=== PATIENT | female | born 1925 | race Caucasian/White ===

== ENCOUNTER 2016-07-21 05:27 | Inpatient (IN) | payer MEDICARE, BC ==
--- NOTE | 2016-07-18 18:10 | PREOPHP ---
DATE OF ADMISSION: 07/21/2016 The patient to have surgery with Dr. Yonis Zimmerman 07/21/2016. CONSULTATION REQUESTED BY: Dr. Yonis Zimmerman for medical evaluation and clearance of an 89-yea r-old woman admitted for correction of a fractured right hip. Thank you, Dr. Zimmerman, for participating and allowing us to participate in the care of our patie nt. HISTORY OF PRESENT ILLNESS: Joann Morris, an 89-year-old woman, had a fall approximately 3 to 4 wee ks ago and eventually was brought to the emergency room at [facility] and evaluation at the em ergency room revealed a fractured right hip and patient is currently being admitted for correction o f the above. In terms of her past surgical history, she has had an aortic valve replaced, had thyro id surgery done in the past for removal of a suspicious nodule, had aortic valve replacement as well as D and C. Other than that, she really has not had any significant hospitalizations other than e one with her aortic valve. This would be her first hospitalization in terms of second surgery, re quirement other than the aortic valve. She is being treated medically for hypertension and hyperlipidemia, as well as osteoporosis. She garcia s a cognitive disorder, fractured bones, fractured elbow and currently her right hip. MEDICATIONS: Include: 1. Lipitor 10 mg a day. 2. Metoprolol 25 mg a day. 3. Boniva 150 mg once monthly. 4. Baby aspirin. ALLERGIES: TO HER KNOWLEDGE, SHE HAS ENVIRONMENTAL ALLERGIES. SHE IS NOT ALLERGIC TO ANY MEDICATIO NS, AT LEAST FAR THE PATIENT OR HER FAMILY IS AWARE. SOCIAL HISTORY: The patient is single, has 4 children, 8 grandchildren and 5 great grandchildren. She does not smoke or drink alcoholic beverages, occasional coffee. She does not have difficulty sl eeping at night, but lately has been having difficulty secondary to pain. FAMILY HISTORY: Father at age 71 of coronary artery disease. Mother 51, had breast cancer. O ne brother at age 30. There is family history of heart, cancer and hypertension. REVIEW OF SYSTEMS: HEENT: Periodic headaches. CARDIORESPIRATORY: Denies any chest pain or shortness of breath. GASTROINTESTINAL: No melena or hematemesis. GENITOURINARY: No urgency, frequency. MUSCULOSKELETAL: Positive for right hip pain. NEUROPSYCHIATRIC: Positive for cognitive disorder. GENERAL HEALTH: As above. PHYSICAL EXAMINATION: VITAL SIGNS: The patient's blood pressure was 126/80, pulse was 67 and regular, respirations were 1 8, temperature 98.3. Last weight obtained was 89 pounds. GENERAL: The patient was noted to be a well-developed, well-nourished female, alert and cooperative , in no apparent acute distress, oriented to time, place, and person. HEENT: Head: Atraumatic. Eyes: Pupils were equal, reactive to light and accommodation. Fundi we re benign. Ears: Tympanic membranes were unremarkable. Nose: Negative. Mouth: Unremarkable. F air oral hygiene was present. NECK: Supple without any rigidity. Trachea was midline. Thyroid was unremarkable. Neck veins wer e flat. Carotid pulses were equal and scar was noted from prior thyroid surgery. BACK: Unremarkable. CHEST: Symmetrical. BREASTS AND AXILLARY: Did not reveal any masses. LUNGS: Clear to percussion and auscultation. HEART: PMI is fifth intercostal space at the midclavicular line. Regular sinus rhythm was noted. No significant murmurs, rubs, or gallops being elicited. Scar from prior sternotomy was noted as we ll. ABDOMEN: Soft, good bowel sounds were noted. No significant organomegaly, masses, or tenderness. GENITALIA: Normal female external genitalia. PELVIC/RECTAL: Not done due to patient's discomfort. EXTREMITIES: Did not reveal any clubbing, edema or cyanosis. There was some extreme pain on motion of her right lower extremity. Peripheral pulses were physiologic. SKIN: Moist and warm without any eruptions. No gross lymphadenopathy was noted. NEUROLOGIC: Grossly intact. IMPRESSION: 1. Fractured right hip. 2. Osteoporosis by history. 3. Hypertension. 4. Status post aortic valve replacement. 5. Cognitive disorder, moderate to severe. 6. Degenerative joint disease. DISCUSSION: Review of laboratory and other data revealed the following: The patient's chemistries revealed normal electrolytes. Random glucose of 166, BUN 26, creatinine 0.7, albumin was slightly l ow alkaline phosphatase was minimally elevated. The rest of liver function tests were normal. The patient's CBC revealed a normal white count and mild anemia. PT, PTT were normal. The patient had a urinalysis done at [place] emergency room and this was not repeated. The patient's EKG revealed n onspecific ST-T wave changes, no hyperacute changes, and a single view chest x-ray revealed scoliosi s, status post craniotomy, no acute infiltrate being noted and no acute cardiopulmonary changes bein g noted. DISCUSSION: Dr. Zimmerman, I see no contraindication in this patient undergoing current proposed s urgery under desired form of anesthesia. I feel that if she does not have surgery the patient will be bedbound for her remaining years with chronic discomfort. I feel at this point, albeit her age a nd other issues, she is still is a suitable candidate. Thank you again, Dr. Zimmerman, for participating and allowing us to participate in the care of our patient. Dictated By: BRUNO BENAVIDES MD SS/NTS Conf#: [id number] DID#: [id number]
[2016-07-21] VITALS (106 sets, daily range): BP systolic 58–150; BP diastolic 19–79; PULSE 48–130; RESP 13–42; Ht 152.4 cm; Wt 40.8 kg
[~2016-07-21] VITALS: Ht 152.4 cm; Wt 40.8 kg
[~2016-07-21 05:27] MED LIST: ASPI-650 PO; ATOR20TA17 PO; CO Q-10; IBAN150T4 PO; LISI10TA2 PO; METO-103 PO; MULT1TAB6 PO; VITAMIN D3
[2016-07-21] MEDS ORDERED: DEXAMETHASONE 4 MG/ML 1 ML INJ IV ONE (06:00)
[2016-07-21] MEDS ORDERED: SOD CHLORIDE 0.9% IVPB ONE (06:00)
[2016-07-21] MEDS ORDERED: ONDANSETRON 4 MG INJ IV ONE (06:00)
[2016-07-21] MEDS ORDERED: LANSOPRAZOLE 30 MG CAP PO ONE (06:00)
[2016-07-21] MEDS ORDERED: ACETAMINOPHEN 1000MG/100ML IV 100 ML IVPB ONE (06:00)
[2016-07-21] MEDS ORDERED: VANCOMYCIN 1 GM (PMX) 250 ML IVPB ONE (06:00)
[2016-07-21] MEDS ORDERED: CELECOXIB 200 MG CAP PO ONE (06:00)
[2016-07-21] MEDS ORDERED: TRANEXAMIC ACID IVPB ONE (06:00)
[2016-07-21] MEDS ORDERED: LACTATED RINGER'S 1,000 ML IV* SCH (06:00)
[2016-07-21] MEDS ORDERED: SOD CHLORIDE 0.9% IRR SCH ×2 (06:00)
[2016-07-21] MEDS ORDERED: TRANEXAMIC ACID IRR SCH ×2 (06:00)
[2016-07-21] MEDS ORDERED: oxyCODONE (CR) 10 MG TAB [oxyCONTIN] PO ONE (06:00)
[2016-07-21] MEDS ORDERED: PROPOFOL 20 ML ONE (06:13)
[2016-07-21] MEDS ORDERED: NEOSTIGMINE 3 MG/3 ML SYRINGE ONE (06:13)
[2016-07-21] MEDS ORDERED: LIDOCAINE 2% (SDV) 5 ML INJ ONE (06:13)
[2016-07-21] MEDS ORDERED: GLYCOPYRROLATE 0.4 MG INJ ONE (06:13)
[2016-07-21] MEDS ORDERED: ROCURONIUM 50 MG INJ ONE (06:13)
[2016-07-21] MEDS ORDERED: FENTAnyl 50 MCG/ML VIAL ONE ×2 (06:14→16:52)
[2016-07-21] MEDS ORDERED: LIDOCAINE 2%/EPI 30 ML INJ ONE (06:26)
[2016-07-21] MEDS ORDERED: ATROPINE 1 MG/10 ML SYRINGE IV PRN (06:30)
[2016-07-21] MEDS ORDERED: hydrALAzine 20 MG INJ IV PRN (06:30)
[2016-07-21] MEDS ORDERED: HYDROmorphONE (0.2 MG/ML) 10ML SYG IV PRN ×3 (06:30)
[2016-07-21] MEDS ORDERED: EPHEDrine SULFATE 50 MG/5 ML SYG IV PRN ×2 (06:30→23:00)
[2016-07-21] MEDS ORDERED: FENTAnyl 50 MCG/ML VIAL IV PRN ×2 (06:30)
[2016-07-21] MEDS ORDERED: ONDANSETRON 4 MG INJ IV PRN (06:30)
[2016-07-21] MEDS ORDERED: MEPERIDINE 25 MG INJ IV PRN (06:30)
[2016-07-21] MEDS ORDERED: DIPHENHYDRAMINE 50 MG INJ IV PRN (06:30)
[2016-07-21] MEDS ORDERED: LABETALOL HCL 20MG INJ IV PRN (06:30)
[2016-07-21] MEDS ORDERED: morphine (1 MG/ML) 10ML SYRINGE IV PRN ×3 (06:30)
[2016-07-21] MEDS ORDERED: OXYCODONE/ACETAMINOPHEN (5/325) TAB PO PRN ×2 (06:30)
[2016-07-21] MEDS ORDERED: BACITRACIN 50000 UNITS INJ ONE (06:36)
[2016-07-21] MEDS ORDERED: ROPIVACAINE 0.5 % 30 ML VIAL ONE (06:47)
[2016-07-21] MEDS ORDERED: VANCOMYCIN 1 GM INJ ONE (06:48)
[2016-07-21] MEDS ORDERED: POLYMYXIN B 500000 UNIT INJ ONE (06:48)
[2016-07-21] MEDS ORDERED: TOBRAMYCIN 1.2 GM POWDER ONE (06:48)
[2016-07-21] MEDS ORDERED: ROPIVACAINE 0.2% 100ML BAG ONE (06:48)
[2016-07-21] MEDS ORDERED: DOCU-144 PO (06:50)
[2016-07-21] MEDS ORDERED: SENN-53 PO (06:50)
[2016-07-21] MEDS ORDERED: TRAZ50TA18 PO (06:50)
[2016-07-21] MEDS ORDERED: ONDANSETRON 4 MG INJ ONE ×2 (07:00→07:53)
[2016-07-21] MEDS ORDERED: HIP PAIN COCKTAIL VANCO INJ SCH ×7 (07:00)
[2016-07-21] MEDS ORDERED: DEXAMETHASONE 4 MG/ML 1 ML INJ ONE (07:53)
[2016-07-21] MEDS ORDERED: MINERAL OIL LIGHT 10 ML VIAL ONE (08:39)
[2016-07-21] MEDS ORDERED: oxyCODONE 5 MG TAB PO PRN (10:00)
[2016-07-21] MEDS ORDERED: BISACODYL 10 MG SUPP PR PRN (10:00)
[2016-07-21] MEDS ORDERED: BETHANECHOL 25 MG TAB PO PRN (10:00)
[2016-07-21] MEDS ORDERED: NALOXONE (0.4 MG/ML) INJ IV PRN (10:00)
[2016-07-21] MEDS ORDERED: DOCUSATE SODIUM 100 MG CAP PO ONE (10:00)
[2016-07-21] MEDS ORDERED: HYDROmorphONE 0.2 MG/ML PCA IV PRN (10:00)
[2016-07-21] MEDS ORDERED: MAGNESIUM HYDROXIDE 30ML CUP PO PRN (10:00)
[2016-07-21] MEDS ORDERED: NA PHOSPHATE/BIPHOS 133 ML ENEMA PR PRN (10:00)
[2016-07-21] MEDS ORDERED: MEPERIDINE 10 MG/ML 30 ML PCA IV PRN (10:00)
[2016-07-21] MEDS ORDERED: SENNA/DOCUSATE NA (8.6MG/50MG) TAB PO PRN (10:00)
[2016-07-21] MEDS ORDERED: DIPHENHYDRAMINE 50 MG INJ IM PRN (10:00)
[2016-07-21] MEDS ORDERED: ASPIRIN (EC) 325 MG TAB PO ONE ×2 (10:00→10:37)
[2016-07-21] MEDS ORDERED: ONDANSETRON 4 MG INJ IV SCH (10:00)
[2016-07-21] MEDS ORDERED: CEFAZOLIN 1 GM/50 ML (PMX) 50 ML IVPB ONE (10:36)
[2016-07-21] MEDS: CEFAZOLIN 1 GM/50 ML (PMX) 50 ML IVPB SCH ×2 (11:09→18:13)
--- NOTE | 2016-07-21 11:29 | RADRPT ---
PROCEDURE: XR Right Hip CLINICAL INDICATION: Pain TECHNIQUE: A single portable AP view was submitted. COMPARISON: 07/14/2016 FINDINGS: Osseous structures: Since the previous study, the fracture proximal right femoral neck was replaced with a whole right hip hemiprosthesis which appears well seated. Corticated osseous fragments are s een medial and superior to the lesser trochanter as well as superior to the greater trochanter. Joint spaces: The hip joint spaces well maintained. Soft tissues: Postop subcutaneous air is evident and 2 drains have been placed. Surgical bernice ar e seen laterally. A Brunner catheter projects to the bladder. IMPRESSION: 1. Interval placement of a well seated right hip hemiprosthesis. 2. Osseous fragments are seen about the lesser and greater trochanter. 3. Postoperative subcutaneous air is evident along with 2 drains and superficial bernice have been placed laterally. 4. A Brunner catheter is seen to be in place. Physician Sera Date Time Electronically viewed and signed by Physician Sera on 07/21/2016 11:29 /
--- NOTE | 2016-07-21 11:56 | OPR ---
DATE OF OPERATION: 07/21/2016 SURGEON: Yonis Zimmerman MD ENERGY ADMINISTRATOR: ANESTHESIOLOGIST: Evan Ruiz MD PREOPERATIVE DIAGNOSES: 1. Displaced fracture of the right femoral neck. 2. Severe osteoporosis. POSTOPERATIVE DIAGNOSES: 1. Displaced fracture of the right femoral neck. 2. Severe osteoporosis. OPERATION PERFORMED: Bipolar hemiarthroplasty of the right hip. FINDINGS AT SURGERY: The patient was found to have exceedingly fragile bone. The femoral head was in multiple pieces. Because of the extreme fragility of her bone, I opted to use a cemented femoral component to give a guaranteed anchorage for the component as a prophylactic measure against fractu ring of the proximal femur when she gets up and walking. DESCRIPTION OF PROCEDURE: Under general anesthetic, the patient was placed on her left side with an axillary pad under the left chest. The left peroneal nerve was protectively padded. The patient w as secured to the operating room table. The right leg, thigh and lower abdomen were prepared and dr aped in the usual sterile fashion. An incision was made over the lateral aspect of the right thigh. The incision was deepened through the deep fascia to expose the lateral aspect of the greater troc hanter. The incision was about 4 inches long. The femur was internally rotated to expose the fract ured femoral head. After suitable retraction, the femoral head was removed in multiple pieces. The soft tissues in the acetabulum were removed and the trial femoral heads were inserted into the acet abulum to determine the size. A 47 mm femoral head seemed to fit most perfectly. The proximal femur was now prepared by using flexible reamers to remove the medullary fat and cancel lous bone. The proximal femur is now broached with the appropriate broaches until we reached size 2 . A cement restrictor plug was installed in the proximal femur. The interior of the femur was thor oughly cleaned with pulsatile lavage and was then thoroughly dried by packing. The femoral componen t was now installed with methylmethacrylate cement allowing approximately 10 degrees of anteversion to the femoral component. The hip was reduced and it was found that by using the +5 mm femoral head and neck assembly the hip had a full stable functional range of motion and the Myron test seemed to indicate that the leg lengt hs and muscle tension were appropriate. The hip was dislocated. The wound was frequently irrigated throughout the procedure with normal bushra ine containing antibiotics with pulsatile lavage. Soft tissues around the hip were injected with a mixture of Naropin, Toradol, morphine and clonidine. The permanent femoral head and neck assembly was now installed. The hip was reduced. The short ext ernal rotators and the capsule of the hip were reattached to the posterior lip of the greater trocha nter by means of 2 sutures of #5 Ticron. The superior capsular incision was closed using 2 interrup aline sutures of FiberWire. The rest of the deep tissues were closed with interrupted Vicryl. The skin was closed with bernice. The usual sterile dressings were applied. Patient was rolled onto her back and an abduction rose marie w was placed between her legs. The patient returned to the recovery room in stable condition. Ther e were no problems or complications as far as is known. IMPLANT COMPONENT INFORMATION: Femoral component Garden femoral stem from [employer] size 2 standard, femoral head 47 mm, femoral neck +5 mm. Implant teasel setter: The [employer] of [place], [place]. Dictated By: YONIS MARTINEZ/SHARON Conf#: [id number] DID#: [id number]
--- NOTE | 2016-07-21 14:42 | CONS ---
DATE OF ADMISSION: 07/21/2016 DATE OF CONSULTATION: 07/21/2016 POSTOPERATIVE CONSULTATION FOLLOWUP The patient had surgery for fractured hip 07/21/[address] Yonis Zimmerman. SUBJECTIVE: The patient had surgery. The patient was seen in the recovery room, arousable, but sti ll under the effects of her anesthetic. OBJECTIVE: VITAL SIGNS: Revealed the following, blood pressure was 99/54, pulse was 58, respirations were 18, O2 sat was 100%. The patient earlier had been afebrile. HEENT: Unremarkable other than the patient is a mouth breather. LUNGS: Clear. HEART: Reveals a regular rhythm. Rest of the exam unremarkable. The patient is arousable, does open her eyes, turned towards me. IMPRESSION: 1. Status post repair and hip replacement on the right side. 2. Osteoporosis by history. 3. Hypertension. 4. Post aortic valve replacement. 5. Moderate to severe cognitive disorder. DISCUSSION: Plan is to renew patient's medications and obviously monitor her medical status. The p atient will be transferred to the ICU when a room is available due to her age and frail condition. Condition postoperatively, however, is stable. Thank you again, Dr. Zimmerman, for participating and allowing us to participate in the care of our patient. Dictated By: BRUNO MCGRATH/SHARON Conf#: [id number] DID#: [id number]
[2016-07-21] MEDS: traZODone 50 MG TAB PO SCH (19:04)
[2016-07-21] MEDS ORDERED: traZODone 50 MG TAB PO SCH (21:00)
[2016-07-22] VITALS (32 sets, daily range): BP systolic 83–143; BP diastolic 37–123; PULSE 73–136; RESP 13–33
[2016-07-22] MEDS: DEXTROSE 5%-LR 1,000 ML IV SCH ×2 (00:53→13:21)
[2016-07-22] MEDS ORDERED: CEFAZOLIN 1 GM/50 ML (PMX) 50 ML IVPB ONE (02:40)
[2016-07-22 05:20] LABS: BASOPHILS % 0.3 % (0.0-2.0); HEMATOCRIT 27.5 % (37.0-47.0); LYMPHOCYTES # 1.1 10^3/ul (0.8-2.9); LYMPHOCYTES % 12.1 % (15.0-51.0); MEAN CORPUSCULAR HEMOGLOBIN 31.4 pg (29.0-33.0); MEAN CORPUSCULAR HGB CONC 32.8 g/dl (32.0-37.0); MEAN CORPUSCULAR VOLUME 95.7 fl (82.0-101.0); MEAN PLATELET VOLUME 8.7 fl (7.4-10.4); MONOCYTE # 0.6 10^3/ul (0.3-0.9); MONOCYTES % 7.1 % (0.0-11.0); NEUTROPHIL # 7.1 10^3/ul (1.6-7.5); NEUTROPHILS % 80.5 % (39.0-77.0); PLATELET COUNT 225 10^3/UL (140-440); RED BLOOD COUNT 2.87 10^6/ul (4.20-5.40); RED CELL DISTRIBUTION WIDTH 16.1 % (11.5-14.5); UNCORRECTED WBC 8.9 10^3/ul (4.8-10.8); WHITE BLOOD COUNT 8.9 10^3/ul (4.8-10.8)
[2016-07-22 05:23] LABS: POTASSIUM 4.9 mmol/L (3.5-5.1)
[2016-07-22 05:25] LABS: CREATININE 0.57 mg/dl (0.44-1.00)
[2016-07-22 05:26] LABS: CALCIUM 8.8 mg/dl (8.4-10.2)
[2016-07-22 05:29] LABS: CONDITION 1; LH ANALYZER COMMENTS 1
[2016-07-22] MEDS ORDERED: SOD CHLORIDE 0.9% 250 ML IV ONE (05:30)
[2016-07-22] MEDS ORDERED: KETOROLAC 30 MG INJ INJ PRN (06:00)
[2016-07-22] MEDS ORDERED: BUPIVACAINE 0.25%/EPI (SDV) 30 ML INJ INJ PRN (06:00)
[2016-07-22] MEDS ORDERED: METOPROLOL (XL) 25 MG TAB PO SCH (09:00)
[2016-07-22] MEDS: METOPROLOL (XL) 25 MG TAB PO SCH ×2 (09:00→21:59)
[2016-07-22] MEDS: ATORVASTATIN 20 MG TAB PO SCH (10:23)
[2016-07-22] MEDS: DEXAMETHASONE 4 MG/ML 1 ML INJ IV SCH (10:23)
[2016-07-22] MEDS: ASPIRIN (EC) 325 MG TAB PO SCH ×2 (10:24→21:59)
--- NOTE | 2016-07-22 10:30 | PN ---
DATE: 07/22/2016 SUBJECTIVE: Patient alert, arousable, talking, although sometimes not making too much sense, but an swering questions in terms of comfort, pain; probably not oriented to time or place, possibly person . OBJECTIVE VITAL SIGNS: Temperature 98.3, pulse 97 going up to 120, respiratory rate 20, blood pressure 109/60 ; O2 sat on O2, although not consistently on, 97%. HEENT: Unremarkable. LUNGS: Relatively clear. HEART EXAM: Regular. Rest of the exam is unremarkable. IMPRESSION: 1. Status post fractured right hip and hip replacement. 2. Hypertension. 3. Status post aortic valve replacement. 4. Cognitive disorder. DISCUSSION: Review of her laboratory and other data reveals the following: Patient's electrolytes including BUN, creatinine and glucose were normal. Patient's hemoglobin . PHYSICAL EXAMINATION VITAL SIGNS: Reveal a blood pressure of 115/43, pulse of 125, respirations 21, O2 sat 95% on 2 lite rs, and temperature 97.8. HEENT: Unremarkable. LUNGS: Clear. HEART: Regular rhythm, albeit tachycardia. ABDOMEN EXAM: Unremarkable. IMPRESSION: 1. Status post fractured right hip and hip replacement. 2. History of hypertension. 3. Currently tachycardic without her medications. REVIEW OF LABORATORY AND OTHER DATA: Reveals the following: The patient's white count is normal. Her hemoglobin is 9, hematocrit 27.5. Electrolytes reveal normal electrolytes, BUN and creatinine, as well as glucose. PLAN: Probably to increase her beta paul to b.i.d. and possible cardiology consultation in view of problem with managing tachyarrhythmias, patient's relative hypotension and tachycardia condition. However, is relatively stable at this point in time. Thank you again, Dr. Wilson, for participating and allowing us to participate in the care of our patient. Dictated By: BRUNO BENAVIDES MD SS/NTS Conf#: [id number] DID#: [id number] CC: PETER WILSON MD;*End*
[2016-07-22] MEDS: DOCUSATE SODIUM 100 MG CAP PO SCH ×2 (10:56→21:49)
[2016-07-22] MEDS: MULTIVITAMINS/MINERALS TAB PO SCH (11:01)
[2016-07-22] MEDS: CELECOXIB 200 MG CAP PO SCH ×2 (13:39→21:59)
[2016-07-22] MEDS: FERROUS FUMARATE (SR) TAB PO SCH ×2 (13:39→21:59)
[2016-07-22] MEDS: traZODone 50 MG TAB PO SCH (19:37)
[2016-07-22] MEDS: oxyCODONE 5 MG TAB PO PRN (22:01)
[2016-07-23] VITALS (13 sets, daily range): BP systolic 90–139; BP diastolic 58–99; PULSE 116–121; RESP 18–34
[2016-07-23 06:12] LABS: EOSINOPHILS # 0.1 10^3/ul (0.0-0.5); EOSINOPHILS % 1.6 % (0.0-7.0); HEMATOCRIT 25.3 % (37.0-47.0); HEMOGLOBIN 8.6 g/dl (12.0-16.0); LYMPHOCYTES # 1.1 10^3/ul (0.8-2.9); LYMPHOCYTES % 24.8 % (15.0-51.0); MEAN CORPUSCULAR HEMOGLOBIN 32.3 pg (29.0-33.0); MEAN PLATELET VOLUME 8.1 fl (7.4-10.4); MONOCYTE # 0.6 10^3/ul (0.3-0.9); MONOCYTES % 12.6 % (0.0-11.0); NEUTROPHIL # 2.7 10^3/ul (1.6-7.5); PLATELET COUNT 171 10^3/UL (140-440); RED BLOOD COUNT 2.66 10^6/ul (4.20-5.40); UNCORRECTED WBC 4.5 10^3/ul (4.8-10.8); WHITE BLOOD COUNT 4.5 10^3/ul (4.8-10.8)
[2016-07-23 06:18] LABS: CONDITION 1; LH ANALYZER COMMENTS 1
[2016-07-23 06:25] LABS: POTASSIUM 4.7 mmol/L (3.5-5.1)
[2016-07-23 06:27] LABS: CREATININE 0.68 mg/dl (0.44-1.00)
[2016-07-23 06:28] LABS: CALCIUM 8.8 mg/dl (8.4-10.2)
[2016-07-23] MEDS: METOPROLOL (XL) 25 MG TAB PO SCH ×2 (07:48→21:47)
[2016-07-23] MEDS: PANTOPRAZOLE (EC) 40 MG TAB PO SCH ×2 (07:49→08:30)
[2016-07-23] MEDS: DEXAMETHASONE 4 MG/ML 1 ML INJ IV SCH (08:00)
[2016-07-23] MEDS: FERROUS FUMARATE (SR) TAB PO SCH ×2 (08:13→21:46)
[2016-07-23] MEDS: CELECOXIB 200 MG CAP PO SCH ×2 (08:14→21:46)
[2016-07-23] MEDS: ASPIRIN (EC) 325 MG TAB PO SCH ×2 (08:14→21:46)
[2016-07-23] MEDS: DOCUSATE SODIUM 100 MG CAP PO SCH ×2 (08:14→21:47)
[2016-07-23] MEDS: ATORVASTATIN 20 MG TAB PO SCH (08:14)
[2016-07-23] MEDS: DEXTROSE 5%-LR 1,000 ML IV SCH (08:30)
[2016-07-23] MEDS: oxyCODONE 5 MG TAB PO PRN ×3 (08:59→22:50)
--- NOTE | 2016-07-23 09:10 | PN ---
DATE: 07/23/2016 INTENSIVE CARE UNIT PROGRESS NOTE TIME: Approximately 7:30 a.m. SUBJECTIVE: The patient calm at this particular point in time. Daughter is in the room. Apparentl y earlier the patient had removed most of her dressings and other items in terms of her IVs and band ages. At the time of my visit she was relatively calm. PHYSICAL EXAMINATION: VITAL SIGNS: Revealed the following: Pulse was about 120 on the monitor. Blood pressure 108/78, r espiratory rate 20, increasing as agitation increases and O2 sat was 94% on room air. HEENT: Unremarkable. LUNGS: Clear. HEART: Revealed a tachycardia. The rest of the exam was unremarkable other than her mental state which at this point is not agitate d, but calm. IMPRESSION: 1. Status post total hip replacement for post fracture of the right hip. 2. Hypertension. 3. Tachycardia. 4. Possible dehydration. 5. Cognitive disorder. DISCUSSION: Review of laboratory and other data revealed the following: The patient's white count is normal. Her hemoglobin is 8.6, hematocrit 25.3. Her chemistries reveal normal electrolytes, glu cose, BUN, and creatinine. BUN minimally elevated. Plan is to see whether or not a bed can be avai lable for her. Her beta paul should be given, albeit at lower doses, to control her pulse rate a nd hopefully fluid hydration and oral intake of food will resolve some of her other issues. CONDITION: Still quite guarded in view of her multiple problems at her age. Dictated By: BRUNO MCGRATH/SHARON Conf#: [id number] DID#: [id number]
[2016-07-23] MEDS: MULTIVITAMINS/MINERALS TAB PO SCH (09:41)
[2016-07-23] MEDS ORDERED: METOPROLOL (XL) 25 MG TAB PO ONE (11:00)
[2016-07-23] MEDS: DEXAMETHASONE 4 MG TAB PO SCH (11:57)
[2016-07-23] MEDS: QUETIAPINE 25 MG TAB PO SCH (19:18)
[2016-07-23] MEDS: traZODone 50 MG TAB PO SCH (21:47)
[2016-07-24 01:26] VITALS: BP 125/83; RESP 20
[2016-07-24 01:29] VITALS: BP 139/68
[2016-07-24] MEDS: PANTOPRAZOLE (EC) 40 MG TAB PO SCH (06:01)
[2016-07-24] MEDS: oxyCODONE 5 MG TAB PO PRN ×2 (06:01→12:20)
[2016-07-24 06:07] LABS: ALBUMIN 2.7 g/dl (3.3-4.9)
[2016-07-24 06:08] LABS: POTASSIUM 4.6 mmol/L (3.5-5.1)
[2016-07-24 06:10] LABS: ALBUMIN/GLOBULIN RATIO 0.96; BILIRUBIN,INDIRECT 0.2 mg/dl (0-1.1); BILIRUBIN,TOTAL 0.2 mg/dl (0.2-1.3); CREATININE 0.62 mg/dl (0.44-1.00); TOTAL PROTEIN 5.5 g/dl (6.1-8.1)
[2016-07-24 06:11] LABS: BASOPHILS % 0.4 % (0.0-2.0); CALCIUM 8.9 mg/dl (8.4-10.2); EOSINOPHILS % 0.4 % (0.0-7.0); HEMOGLOBIN 10.4 g/dl (12.0-16.0); LYMPHOCYTES # 1.9 10^3/ul (0.8-2.9); LYMPHOCYTES % 25.5 % (15.0-51.0); MEAN CORPUSCULAR HEMOGLOBIN 32.3 pg (29.0-33.0); MEAN CORPUSCULAR HGB CONC 33.7 g/dl (32.0-37.0); MEAN CORPUSCULAR VOLUME 95.9 fl (82.0-101.0); MEAN PLATELET VOLUME 8.9 fl (7.4-10.4); MONOCYTE # 0.9 10^3/ul (0.3-0.9); MONOCYTES % 11.9 % (0.0-11.0); NEUTROPHIL # 4.6 10^3/ul (1.6-7.5); NEUTROPHILS % 61.8 % (39.0-77.0); PLATELET COUNT 226 10^3/UL (140-440); RED BLOOD COUNT 3.23 10^6/ul (4.20-5.40); RED CELL DISTRIBUTION WIDTH 16.1 % (11.5-14.5); UNCORRECTED WBC 7.4 10^3/ul (4.8-10.8); WHITE BLOOD COUNT 7.4 10^3/ul (4.8-10.8)
[2016-07-24 06:30] LABS: CONDITION 1; LH ANALYZER COMMENTS 1
[2016-07-24 07:23] VITALS: BP 104/71; RESP 18
[2016-07-24] MEDS: FERROUS FUMARATE (SR) TAB PO SCH ×2 (09:25→22:27)
[2016-07-24] MEDS: ASPIRIN (EC) 325 MG TAB PO SCH ×2 (09:25→22:27)
[2016-07-24] MEDS: CELECOXIB 200 MG CAP PO SCH ×2 (09:25→22:27)
[2016-07-24] MEDS: DOCUSATE SODIUM 100 MG CAP PO SCH ×2 (09:26→22:27)
[2016-07-24] MEDS: ATORVASTATIN 20 MG TAB PO SCH (09:26)
[2016-07-24] MEDS: METOPROLOL (XL) 25 MG TAB PO SCH ×2 (09:29→22:28)
[2016-07-24] MEDS: DEXAMETHASONE 4 MG TAB PO SCH (09:51)
[2016-07-24] MEDS: MULTIVITAMINS/MINERALS TAB PO SCH (09:52)
--- NOTE | 2016-07-24 11:17 | PN ---
Date/Time of Note Date/Time of Note DATE: 07/24/16 TIME: 11:15 Assessment/Plan Lines/Catheters IV Catheter Type (from Nrsg): Peripheral IV Brunner in Place (from Nrsg): Yes Assessment/Plan Assessment/Plan POD # 3. Stable. -Ok to transfer to ARU -OOB with PT -Hip precautions -Pain cocktail administered -ASA plus bilateral SCDs Subjective 24 Hr Interval Summary Resting comfortably. Exam/Review of Systems Vital Signs Vitals Vital Signs Date Time Temp Pulse Resp B/P Pulse Ox O2 Delivery O2 Flow Rate FiO2 07/24/16 07:23 97.8 68 18 104/71 98 07/23/16 12:00 Room Air 07/22/16 06:00 2.0 Intake and Output 07/23/16 07/23/16 07/24/16 15:00 23:00 07:00 Intake Total 360 ml 500 ml 300 ml Output Total 185 ml 460 ml 550 ml Balance 175 ml 40 ml -250 ml Exam Free Text/Dictation Dressing dry Incision clean, dry, and intact without redness or drainage Thigh soft 5/5 Quadriceps, Tibialis Anterior, EHL, Gastroc Soleus, Peroneals Normal sensation Palpable DP/PT, CR < 2 Sec No distal edema Results Result Diagram: 07/24/16 0415 07/24/16 0415 FABY LIZARRAGA MD Jul 24, 2016 11:16
--- NOTE | 2016-07-24 11:50 | PN ---
Date/Time of Note Date/Time of Note DATE: 07/24/16 TIME: 11:44 Assessment/Plan VTE Prophylaxis VTE Prophylaxis Intervention: SCD's Lines/Catheters IV Catheter Type (from Nrsg): Peripheral IV Urinary Cath still in place: Yes Reason Cath still needed: skin wounds contaminated by urine Assessment/Plan Problems: (1) History of right hip hemiarthroplasty Status: Chronic Comment: Doing fair from post-operative standpoint. No obvious complications. POD#3 (2) Osteoporotic fracture of right hip Status: Acute Comment: H/o multiple osteoporotic fractures. Pt. has been on boniva. Obviously not effective. Consider starting forteo. Qualifiers: Encounter type: subsequent encounter (3) Dementia Status: Chronic Comment: Complicated by delirium here in hospital. Added quetiapine 50 mg qhs. Will continue and monitor mental status. (4) Essential (primary) hypertension Status: Chronic Comment: Controlled. Cont. metoprolol. (5) Hyperlipidemia Status: Chronic Comment: Cont. atorvastatin. Qualifiers: Hyperlipidemia type: unspecified Qualified Code: E78.5 - Hyperlipidemia, unspecified hyperlipidemia type Subjective 24 Hr Interval Summary Constitutional: improved, no complaints Respiratory: no complaints Cardiovascular: no complaints Gastrointestinal: no complaints Genitourinary: no complaints Musculoskeletal: no complaints Neurologic: confusion (family reports pt. confused and agitated, not sleeping well. Quetiapine was helpful but has not solved the problem) Psychological: anxiety, confusion Exam/Review of Systems Vital Signs Vitals VS - Last 72 Hours, by Label Date Time Temp Pulse Resp B/P Pulse Ox O2 Delivery O2 Flow Rate FiO2 07/24/16 07:23 97.8 68 18 104/71 98 07/24/16 01:29 69 139/68 07/24/16 01:26 97.5 70 20 125/83 94 07/23/16 21:20 78 07/23/16 19:18 97.9 124 20 102/64 92 07/23/16 12:00 118 07/23/16 12:00 117 18 109/71 96 Room Air 07/23/16 11:00 119 18 139/99 97 Room Air 07/23/16 10:00 116 20 119/85 96 Room Air 07/23/16 09:00 118 19 108/72 99 Room Air 07/23/16 08:00 98.4 119 19 91/64 97 Room Air 07/23/16 08:00 119 07/23/16 07:30 100 07/23/16 06:01 116 19 106/77 91 Room Air 07/23/16 05:00 117 19 99/72 96 Room Air 07/23/16 04:00 116 07/23/16 04:00 98.0 116 18 109/58 95 Room Air 07/23/16 03:00 120 18 90/68 95 Room Air 07/23/16 02:00 121 34 108/78 94 Room Air 07/23/16 01:00 120 26 109/69 93 Room Air 07/23/16 00:00 120 07/23/16 00:00 97.9 120 32 111/68 93 Room Air 07/22/16 23:03 81 07/22/16 23:00 121 25 120/77 95 Room Air 07/22/16 22:00 122 21 116/73 95 Room Air 07/22/16 21:25 122 07/22/16 21:00 21 124/83 96 Room Air 07/22/16 20:00 98.0 20 105/59 95 Room Air 07/22/16 19:42 20 114/61 95 Room Air 07/22/16 19:00 143/123 07/22/16 18:00 131/94 86 07/22/16 17:00 131/62 07/22/16 16:00 97.7 79 19 133/87 100 07/22/16 16:00 81 07/22/16 15:00 83 24 119/75 93 07/22/16 14:00 75 19 114/59 99 07/22/16 13:00 73 16 103/71 95 07/22/16 12:00 97.4 74 17 96/56 97 07/22/16 12:00 78 07/22/16 11:00 81 13 113/66 95 07/22/16 10:00 84 33 97/53 94 07/22/16 09:00 130 26 83/47 98 07/22/16 08:20 97.9 131 23 95/56 97 07/22/16 08:00 84 07/22/16 06:46 136 07/22/16 06:00 129 23 104/59 98 Nasal Cannula 2.0 07/22/16 05:00 97.8 125 21 115/43 95 Nasal Cannula 2.0 07/22/16 04:51 129 1/5/17 04:00 92 07/22/16 04:00 77 21 113/60 100 Nasal Cannula 2.0 07/22/16 03:00 73 13 89/37 95 Nasal Cannula 2.0 07/22/16 02:00 75 15 97/45 97 Nasal Cannula 2.0 07/22/16 01:58 73 14 97/45 100 Nasal Cannula 2.0 07/22/16 01:37 75 07/22/16 01:15 73 07/22/16 01:00 79 18 101/45 100 Nasal Cannula 2.0 07/22/16 01:00 99 2.0 07/22/16 00:51 98 18 95/46 99 Nasal Cannula 2.0 07/21/16 23:39 88 30 125/48 98 Nasal Cannula 2.0 07/21/16 23:34 66 14 64/35 99 Nasal Cannula 2.0 07/21/16 23:28 64 14 78/37 99 Nasal Cannula 2.0 07/21/16 23:06 66 16 85/41 100 Nasal Cannula 2.0 07/21/16 22:57 64 16 71/36 100 Nasal Cannula 2.0 07/21/16 22:53 70 14 83/36 94 Nasal Cannula 2.0 07/21/16 22:48 64 24 80/34 99 Nasal Cannula 2.0 07/21/16 22:32 70 15 72/37 100 Nasal Cannula 2.0 07/21/16 22:27 56 15 73/40 100 Nasal Cannula 2.0 07/21/16 22:17 62 18 76/37 93 Nasal Cannula 2.0 07/21/16 22:12 64 24 85/34 97 Nasal Cannula 2.0 07/21/16 22:04 60 17 73/34 94 Nasal Cannula 2.0 07/21/16 21:57 60 15 74/19 93 Nasal Cannula 2.0 07/21/16 21:52 97.8 64 17 78/40 93 Nasal Cannula 2.0 07/21/16 21:26 66 19 91/51 95 Nasal Cannula 2.0 07/21/16 21:21 66 17 99/53 95 Nasal Cannula 2.0 07/21/16 21:15 60 17 86/51 99 Nasal Cannula 2.0 07/21/16 21:10 60 24 80/43 92 Nasal Cannula 2.0 07/21/16 21:05 62 28 81/46 93 Nasal Cannula 2.0 07/21/16 21:00 66 28 79/54 96 Nasal Cannula 2.0 07/21/16 20:55 58 15 69/32 97 Nasal Cannula 2.0 07/21/16 20:50 64 19 76/32 94 Nasal Cannula 2.0 07/21/16 20:45 62 19 75/37 99 Nasal Cannula 2.0 07/21/16 20:40 56 16 76/36 100 Nasal Cannula 2.0 07/21/16 20:35 58 14 85/40 98 Nasal Cannula 2.0 07/21/16 20:30 64 20 85/40 99 Nasal Cannula 2.0 07/21/16 20:25 56 16 85/47 99 Nasal Cannula 2.0 07/21/16 20:20 56 16 82/40 98 Nasal Cannula 2.0 07/21/16 20:15 58 29 73/39 99 Nasal Cannula 2.0 07/21/16 20:10 54 15 82/35 100 Nasal Cannula 2.0 07/21/16 20:05 54 15 69/34 99 Nasal Cannula 2.0 07/21/16 19:55 58 15 79/38 99 Nasal Cannula 2.0 07/21/16 19:45 64 13 97/47 98 Nasal Cannula 2.0 07/21/16 19:40 64 14 113/54 99 Nasal Cannula 2.0 07/21/16 19:35 64 19 103/59 90 Nasal Cannula 2.0 07/21/16 19:30 62 14 94/52 95 Nasal Cannula 2.0 07/21/16 19:25 62 24 103/59 96 Nasal Cannula 2.0 07/21/16 19:20 64 42 116/59 93 Nasal Cannula 2.0 07/21/16 19:15 68 24 100/64 96 Nasal Cannula 2.0 07/21/16 19:10 70 24 122/68 96 Nasal Cannula 2.0 07/21/16 19:05 72 30 133/66 98 Nasal Cannula 2.0 07/21/16 19:00 72 17 111/75 89 Nasal Cannula 2.0 07/21/16 18:40 52 17 87/46 100 Nasal Cannula 2.0 07/21/16 18:30 64 25 97/50 95 Nasal Cannula 2.0 07/21/16 18:28 56 32 82/47 97 Nasal Cannula 2.0 07/21/16 18:27 56 17 77/43 94 Nasal Cannula 2.0 07/21/16 18:25 58 21 79/44 95 Nasal Cannula 2.0 07/21/16 18:20 58 21 81/43 96 Nasal Cannula 2.0 07/21/16 18:10 58 20 85/47 96 Nasal Cannula 2.0 07/21/16 18:05 62 20 87/45 95 Nasal Cannula 2.0 07/21/16 18:00 60 17 91/46 94 Nasal Cannula 2.0 07/21/16 17:59 60 18 94/48 95 Nasal Cannula 2.0 07/21/16 17:58 60 15 96/46 95 Nasal Cannula 2.0 07/21/16 17:57 62 14 92/47 95 Nasal Cannula 2.0 07/21/16 17:55 62 16 99/54 93 Nasal Cannula 2.0 07/21/16 17:50 60 25 102/56 96 Nasal Cannula 2.0 07/21/16 17:42 122 32 86/53 69 Nasal Cannula 2.0 07/21/16 17:39 124 23 58/44 82 Nasal Cannula 2.0 07/21/16 17:35 66 25 93 07/21/16 17:30 60 17 102/56 96 07/21/16 16:30 92 17 137/72 88 07/21/16 16:27 106 17 135/79 90 07/21/16 15:43 63 14 98/60 100 07/21/16 14:30 50 17 116/58 100 07/21/16 14:14 20 104/57 100 07/21/16 13:30 56 21 109/59 99 07/21/16 12:21 52 16 100 07/21/16 12:16 58 18 99/54 100 07/21/16 12:11 52 18 85/48 100 07/21/16 12:06 52 16 84/47 100 07/21/16 12:01 50 15 81/48 100 07/21/16 12:00 63 17 92/53 100 07/21/16 11:59 63 17 96/46 100 07/21/16 11:56 74 17 92/49 100 07/21/16 11:52 62 18 87/43 100 07/21/16 11:46 50 18 89/49 100 Vital Signs Date Time Temp Pulse Resp B/P Pulse Ox O2 Delivery O2 Flow Rate FiO2 07/24/16 07:23 97.8 68 18 104/71 98 07/23/16 12:00 Room Air 07/22/16 06:00 2.0 Intake and Output 07/23/16 07/23/16 07/24/16 15:00 23:00 07:00 Intake Total 360 ml 500 ml 300 ml Output Total 185 ml 460 ml 550 ml Balance 175 ml 40 ml -250 ml Exam Constitutional: alert, frail, No oriented, No well developed Psych: confusion Respiratory: clear to auscultation, normal air movement Cardiovascular: nl pulses, regular rate and rhythm, No edema, No murmurs/extra sounds, No rub Gastrointestinal: bowel sounds, nl liver, spleen, non-tender, soft, No mass, No rebound or guarding Musculoskeletal: nl extremities to inspection Extremities: normal pulses, No clubbing, No cyanosis, No edema Neurological: CAD DEVELOPER II-XII intact, confused, nl mental status, nl speech, nl strength Results Result Diagram: 07/24/1641407/24/165 Results 24 hrs Laboratory Tests Test 07/24/16 04:15 Alanine Aminotransferase (ALT/SGPT) 27 Albumin 2.7 L Albumin/Globulin Ratio 0.96 Alkaline Phosphatase 114 Anion Gap 14 Aspartate Amino Transf (AST/SGOT) 32 Basophils # 0.0 Basophils % 0.4 Blood Morphology Comment Blood Urea Nitrogen 22 H Calcium Level 8.9 Carbon Dioxide Level 28 Chloride Level 103 Creatinine 0.62 Direct Bilirubin 0.00 Eosinophils # 0.0 Eosinophils % 0.4 Globulin 2.80 Glucose Level 91 Hematocrit 31.0 #L Hemoglobin 10.4 #L Indirect Bilirubin 0.2 Lymphocytes # 1.9 Lymphocytes % 25.5 Mean Corpuscular Hemoglobin 32.3 Mean Corpuscular Hemoglobin Concent 33.7 Mean Corpuscular Volume 95.9 Mean Platelet Volume 8.9 Monocytes # 0.9 Monocytes % 11.9 H Neutrophils # 4.6 Neutrophils % 61.8 Nucleated Red Blood Cells # 0.0 Nucleated Red Blood Cells % 0.0 Platelet Count 226 # Potassium Level 4.6 Red Blood Count 3.23 #L Red Cell Distribution Width 16.1 H Sodium Level 140 Total Bilirubin 0.2 Total Protein 5.5 L White Blood Count 7.4 # Medications Medications Current Medications Oxycodone HCl (Roxicodone) 10 mg Q3H PRN PO PAIN LEVEL 4-7 Last administered on 07/24/16 06:01; Admin Dose 10 MG; Start 07/21/16 at 10:00 Zolpidem Tartrate (Ambien) 5 mg HS PRN PO INSOMNIA; Start 07/21/16 at 10:00 Aspirin (Ecotrin) 325 mg BID PO Last administered on 07/24/16 09:25; Admin Dose 325 MG; Start 07/22/16 at 09:00 Celecoxib (Celebrex) 200 mg BID PO Last administered on 07/24/16 09:25; Admin Dose 200 MG; Start 07/22/16 at 09:00 Pantoprazole (Protonix Tab) 40 mg DAILY@06 PO Last administered on 07/24/16 06: 01; Admin Dose 40 MG; Start 07/22/16 at 06:00 Docusate Sodium/ Ferrous Fumarate (Tyree-Sequels) 1 tab BID PO Last administered on 07/24/16 09:25; Admin Dose 1 TAB; Start 07/22/16 at 09:00 Docusate Sodium (Colace) 200 mg BID PO Last administered on 07/24/16 09:26; Admin Dose 200 MG; Start 07/22/16 at 09:00; Stop 07/24/16 at 21:01 Simethicone (Mylicon) 80 mg TID PRN PO DISTENSION/GAS/BLOATING; Start 07/21/16 at 10:00 Senna/Docusate Sodium (Senokot-S) 2 tab BID PRN PO CONSTIPATION; Start 07/21/16 at 10:00 Magnesium Hydroxide (Milk Of Mag) 30 ml HS PRN PO CONSTIPATION; Start 07/21/16 at 10:00 Bisacodyl (Dulcolax Supp) 10 mg DAILY PRN [place] CONSTIPATION; Start 07/21/16 at 10: 00 Sodium Biphosphate/ Sodium Phosphate (Fleet Enema) 133 ml DAILY PRN [place] CONSTIPATION; Start 07/21/16 at 10:00 Diphenhydramine HCl (Benadryl) 25 mg Q4H PRN IM ITCHING OR RASH Last administered on 07/21/16 14:23; Admin Dose 25 MG; Start 07/21/16 at 10:00 Ketorolac Tromethamine (Toradol) 30 mg DAILY@06 PRN INJ ADMINSTER BY SURGEON ONLY; Start 07/22/16 at 06:00; Stop 07/26/16 at 05:59 Bupivacaine HCl/ Epinephrine Bitart (Marcaine 0.25%/ Epi (Sdv) 30 ml) 20 ml DAILY@06 PRN INJ ADMINSTER BY SURGEON ONLY; Start 07/22/16 at 06:00; Stop at 05:59 Naloxone HCl (Narcan) 0.2 mg Q2M PRN IV DECREASED REPIRATORY RATE; Start at 10:00 Atorvastatin Calcium (Lipitor) 20 mg DAILY PO Last administered on 07/24/16 09: 26; Admin Dose 20 MG; Start 07/22/16 at 09:00 Multivitamins/ Minerals (Theragran-M) 1 tab DAILY PO Last administered on 09:52; Admin Dose 1 TAB; Start 07/22/16 at 09:00 Trazodone HCl (Desyrel) 50 mg QHS PO Last administered on 07/23/16 21:47; Admin Dose 50 MG; Start 07/21/16 at 17:20 Metoprolol Succinate (Toprol Xl) 25 mg BID PO Last administered on 07/24/16 09: 29; Admin Dose 25 MG; Start 07/22/16 at 09:00 Dexamethasone (Decadron) 4 mg DAILY PO Last administered on 07/24/16 09:51; Admin Dose 4 MG; Start 07/23/16 at 12:00; Stop 08/02/16 at 11:59 Quetiapine Fumarate (Seroquel) 50 mg HS PO Last administered on 07/23/16 19:18 ; Admin Dose 50 MG; Start 07/23/16 at 17:00 MICHAELLE ARIAS MD Jul 24, 2016 11:50
[2016-07-24 19:21] VITALS: BP 129/82; RESP 16
[2016-07-24] MEDS: traZODone 50 MG TAB PO SCH (22:27)
[2016-07-24] MEDS: QUETIAPINE 25 MG TAB PO SCH (22:28)
[2016-07-25] MEDS: oxyCODONE 5 MG TAB PO PRN ×2 (00:35→15:28)
[2016-07-25] MEDS: PANTOPRAZOLE (EC) 40 MG TAB PO SCH (05:44)
[2016-07-25 05:53] LABS: BASOPHILS % 0.7 % (0.0-2.0); EOSINOPHILS # 0.2 10^3/ul (0.0-0.5); EOSINOPHILS % 4.6 % (0.0-7.0); HEMATOCRIT 25.5 % (37.0-47.0); HEMOGLOBIN 8.4 g/dl (12.0-16.0); LYMPHOCYTES # 1.4 10^3/ul (0.8-2.9); LYMPHOCYTES % 27.1 % (15.0-51.0); MEAN CORPUSCULAR HEMOGLOBIN 31.4 pg (29.0-33.0); MEAN CORPUSCULAR HGB CONC 33.2 g/dl (32.0-37.0); MEAN CORPUSCULAR VOLUME 94.7 fl (82.0-101.0); MEAN PLATELET VOLUME 8.7 fl (7.4-10.4); MONOCYTE # 0.5 10^3/ul (0.3-0.9); MONOCYTES % 10.4 % (0.0-11.0); NEUTROPHIL # 2.9 10^3/ul (1.6-7.5); NEUTROPHILS % 57.2 % (39.0-77.0); PLATELET COUNT 193 10^3/UL (140-440); RED BLOOD COUNT 2.69 10^6/ul (4.20-5.40); RED CELL DISTRIBUTION WIDTH 15.2 % (11.5-14.5); UNCORRECTED WBC 5.1 10^3/ul (4.8-10.8); WHITE BLOOD COUNT 5.1 10^3/ul (4.8-10.8)
[2016-07-25 06:10] LABS: CONDITION 1; LH ANALYZER COMMENTS 1
[2016-07-25 07:58] VITALS: BP 153/75; PULSE 72; RESP 20
[2016-07-25] MEDS: DEXAMETHASONE 4 MG TAB PO SCH ×2 (09:00→09:15)
[2016-07-25] MEDS: METOPROLOL (XL) 25 MG TAB PO SCH ×3 (09:00→21:47)
[2016-07-25] MEDS: CELECOXIB 200 MG CAP PO SCH ×3 (09:00→21:46)
[2016-07-25] MEDS: ATORVASTATIN 20 MG TAB PO SCH ×2 (09:00→09:15)
[2016-07-25] MEDS: FERROUS FUMARATE (SR) TAB PO SCH ×3 (09:00→21:00)
[2016-07-25] MEDS: MULTIVITAMINS/MINERALS TAB PO SCH ×2 (09:00→09:15)
[2016-07-25] MEDS: ASPIRIN (EC) 325 MG TAB PO SCH ×3 (09:15→21:46)
--- NOTE | 2016-07-25 10:23 | PN ---
Date/Time of Note Date/Time of Note DATE: 07/25/16 TIME: 10:16 Assessment/Plan VTE Prophylaxis VTE Prophylaxis Intervention: SCD's Lines/Catheters IV Catheter Type (from Nrs): Peripheral IV Urinary Cath still in place: No Assessment/Plan Problems: (1) Tachycardia Status: Acute Comment: Regular rhythm tachycardia but pt. at rest. Will check 12-lead EKG (2) Delirium Status: Acute Comment: Worse today despite quetiapine last night. Will order Haldol 1 mg IV q6 prn (3) Dementia Status: Chronic Comment: Contributing to delirium (4) H/O osteoporotic pathological fracture Status: Chronic Comment: Consider forteo. (5) Constipation Status: Chronic Comment: At home family giving 3 senna, tid around the clock. Will continue this. (6) History of right hip hemiarthroplasty Status: Chronic Comment: Clinically worse POD#4. Pt. being monitored but despite best efforts , delirium continues. Will continue current care and hope it resolves. Subjective 24 Hr Interval Summary Subjective hx not possible: pt non-verbal (mostly sleeping, when examined pt. wakes and incoherently indicates she does not want to be disturbed) Exam/Review of Systems Vital Signs Vitals VS - Last 72 Hours, by Label Date Time Temp Pulse Resp B/P Pulse Ox O2 Delivery O2 Flow Rate FiO2 07/25/16 07:58 97.8 72 20 153/75 92 Room Air 07/24/16 19:21 99.0 137 16 129/82 98 07/24/16 07:23 97.8 68 18 104/71 98 07/24/16 01:29 69 139/68 07/24/16 01:26 97.5 70 20 125/83 94 07/23/16 21:20 78 07/23/16 19:18 97.9 124 20 102/64 92 07/23/16 12:00 118 07/23/16 12:00 117 18 109/71 96 Room Air 07/23/16 11:00 119 18 139/99 97 Room Air 07/23/16 10:00 116 20 119/85 96 Room Air 07/23/16 09:00 118 19 108/72 99 Room Air 07/23/16 08:00 98.4 119 19 91/64 97 Room Air 07/23/16 08:00 119 07/23/16 07:30 100 07/23/16 06:01 116 19 106/77 91 Room Air 07/23/16 05:00 117 19 99/72 96 Room Air 07/23/16 04:00 116 07/23/16 04:00 98.0 116 18 109/58 95 Room Air 07/23/16 03:00 120 18 90/68 95 Room Air 07/23/16 02:00 121 34 108/78 94 Room Air 07/23/16 01:00 120 26 109/69 93 Room Air 07/23/16 00:00 120 07/23/16 00:00 97.9 120 32 111/68 93 Room Air 07/22/16 23:03 81 07/22/16 23:00 121 25 120/77 95 Room Air 07/22/16 22:00 122 21 116/73 95 Room Air 07/22/16 21:25 122 07/22/16 21:00 21 124/83 96 Room Air 07/22/16 20:00 98.0 20 105/59 95 Room Air 07/22/16 19:42 20 114/61 95 Room Air 07/22/16 19:00 143/123 07/22/16 18:00 131/94 86 07/22/16 17:00 131/62 07/22/16 16:00 97.7 79 19 133/87 100 07/22/16 16:00 81 07/22/16 15:00 83 24 119/75 93 07/22/16 14:00 75 19 114/59 99 07/22/16 13:00 73 16 103/71 95 07/22/16 12:00 97.4 74 17 96/56 97 07/22/16 12:00 78 07/22/16 11:00 81 13 113/66 95 Vital Signs Date Time Temp Pulse Resp B/P Pulse Ox O2 Delivery O2 Flow Rate FiO2 07/25/16 07:58 97.8 72 20 153/75 92 Room Air 07/22/16 06:00 2.0 Intake and Output 07/24/16 07/24/16 07/25/16 15:00 23:00 07:00 Intake Total 550 ml 400 ml Output Total 350 ml 900 ml Balance 200 ml -500 ml Exam Constitutional: frail, No alert, No oriented Psych: confusion Respiratory: clear to auscultation, normal air movement Cardiovascular: edema (1+ edema BLE), No regular rate and rhythm (tachycardic) Gastrointestinal: bowel sounds, nl liver, spleen, non-tender, soft, No mass, No rebound or guarding Musculoskeletal: nl extremities to inspection Extremities: edema (1+), normal pulses, No clubbing, No cyanosis Neurological: confused, lethargic, No MARKING CLERK II-XII intact, No nl mental status, No nl speech, No nl strength Results Result Diagram: 07/25/16 0430 07/24/16 0415 Results 24 hrs Laboratory Tests Test 07/25/16 04:30 Basophils # 0.0 Basophils % 0.7 Blood Morphology Comment Eosinophils # 0.2 Eosinophils % 4.6 Hematocrit 25.5 L Hemoglobin 8.4 L Lymphocytes # 1.4 Lymphocytes % 27.1 Mean Corpuscular Hemoglobin 31.4 Mean Corpuscular Hemoglobin Concent 33.2 Mean Corpuscular Volume 94.7 Mean Platelet Volume 8.7 Monocytes # 0.5 Monocytes % 10.4 Neutrophils # 2.9 Neutrophils % 57.2 Nucleated Red Blood Cells # 0.0 Nucleated Red Blood Cells % 0.0 Platelet Count 193 Red Blood Count 2.69 L Red Cell Distribution Width 15.2 H White Blood Count 5.1 # Medications Medications Current Medications Oxycodone HCl (Roxicodone) 10 mg Q3H PRN PO PAIN LEVEL 4-7 Last administered on 07/25/16 00:35; Admin Dose 10 MG; Start 07/21/16 at 10:00 Zolpidem Tartrate (Ambien) 5 mg HS PRN PO INSOMNIA; Start 07/21/16 at 10:00 Aspirin (Ecotrin) 325 mg BID PO Last administered on 07/25/16 09:18; Admin Dose 325 MG; Start 07/22/16 at 09:00 Celecoxib (Celebrex) 200 mg BID PO Last administered on 07/24/16 22:27; Admin Dose 200 MG; Start 07/22/16 at 09:00 Pantoprazole (Protonix Tab) 40 mg DAILY@06 PO Last administered on 07/25/16 05: 44; Admin Dose 40 MG; Start 07/22/16 at 06:00 Docusate Sodium/ Ferrous Fumarate (Tyree-Sequels) 1 tab BID PO Last administered on 07/24/16 22:27; Admin Dose 1 TAB; Start 07/22/16 at 09:00 Simethicone (Mylicon) 80 mg TID PRN PO DISTENSION/GAS/BLOATING; Start 07/21/16 at 10:00 Senna/Docusate Sodium (Senokot-S) 2 tab BID PRN PO CONSTIPATION Last administered on 07/24/16 22:29; Admin Dose 2 TAB; Start 07/21/16 at 10:00 Magnesium Hydroxide (Milk Of Mag) 30 ml HS PRN PO CONSTIPATION Last administered on 07/24/16 22:29; Admin Dose 30 ML; Start 07/21/16 at 10:00 Bisacodyl (Dulcolax Supp) 10 mg DAILY PRN [place] CONSTIPATION; Start 07/21/16 at 10: 00 Sodium Biphosphate/ Sodium Phosphate (Fleet Enema) 133 ml DAILY PRN [place] CONSTIPATION; Start 07/21/16 at 10:00 Diphenhydramine HCl (Benadryl) 25 mg Q4H PRN IM ITCHING OR RASH Last administered on 07/21/16 14:23; Admin Dose 25 MG; Start 07/21/16 at 10:00 Ketorolac Tromethamine (Toradol) 30 mg DAILY@06 PRN INJ ADMINSTER BY SURGEON ONLY; Start 07/22/16 at 06:00; Stop 07/26/16 at 05:59 Bupivacaine HCl/ Epinephrine Bitart (Marcaine 0.25%/ Epi (Sdv) 30 ml) 20 ml DAILY@06 PRN INJ ADMINSTER BY SURGEON ONLY; Start 07/22/16 at 06:00; Stop at 05:59 Naloxone HCl (Narcan) 0.2 mg Q2M PRN IV DECREASED REPIRATORY RATE; Start at 10:00 Atorvastatin Calcium (Lipitor) 20 mg DAILY PO Last administered on 07/24/16 09: 26; Admin Dose 20 MG; Start 07/22/16 at 09:00 Multivitamins/ Minerals (Theragran-M) 1 tab DAILY PO Last administered on 09:52; Admin Dose 1 TAB; Start 07/22/16 at 09:00 Trazodone HCl (Desyrel) 50 mg QHS PO Last administered on 07/24/16 22:27; Admin Dose 50 MG; Start 07/21/16 at 17:20 Metoprolol Succinate (Toprol Xl) 25 mg BID PO Last administered on 07/24/16 22: 28; Admin Dose 25 MG; Start 07/22/16 at 09:00 Dexamethasone (Decadron) 4 mg DAILY PO Last administered on 07/24/16 09:51; Admin Dose 4 MG; Start 07/23/16 at 12:00; Stop 08/02/16 at 11:59 Quetiapine Fumarate (Seroquel) 50 mg HS PO Last administered on 07/24/16 22:28 ; Admin Dose 50 MG; Start 07/23/16 at 17:00 MICHAELLE ARIAS MD Jul 25, 2016 10:23
[2016-07-25] MEDS ORDERED: HALOPERIDOL 5 MG INJ IV PRN (10:30)
--- NOTE | 2016-07-25 11:47 | PN ---
Date/Time of Note Date/Time of Note DATE: 07/25/16 TIME: 11:45 Assessment/Plan Lines/Catheters IV Catheter Type (from Nrsg): Peripheral IV Brunner in Place (from Nrsg): Yes Assessment/Plan Assessment/Plan POD # 4. Stable. -OOB with PT -Hip precautions -Pain meds -ASA/SCDs -Abduction pillow -D/C planning (? to SNF) Subjective 24 Hr Interval Summary Not accepted to ARU. Lying in bed comfortably. Keeps kicking off abduction pillow. Exam/Review of Systems Vital Signs Vitals Vital Signs Date Time Temp Pulse Resp B/P Pulse Ox O2 Delivery O2 Flow Rate FiO2 07/25/16 07:58 97.8 72 20 153/75 92 Room Air 07/22/16 06:00 2.0 Intake and Output 07/24/16 07/24/16 07/25/16 15:00 23:00 07:00 Intake Total 550 ml 400 ml Output Total 350 ml 900 ml Balance 200 ml -500 ml Exam Free Text/Dictation Leg lengths equal Dressing dry Thigh soft 5/5 Quadriceps, Tibialis Anterior, EHL, Gastroc Soleus, Peroneals Normal sensation Palpable DP/PT, CR < 2 Sec No distal edema Results Result Diagram: 07/25/16 0430 07/24/16 0415 FABY LIZARRAGA MD Jul 25, 2016 11:46
[2016-07-25] MEDS: SENNA/DOCUSATE NA (8.6MG/50MG) TAB PO SCH ×2 (13:00→21:47)
[2016-07-25 17:52] VITALS: BP 101/65; PULSE 141; RESP 20
[2016-07-25 20:00] VITALS: BP 136/91; PULSE 136; RESP 21
[2016-07-25] MEDS: traZODone 50 MG TAB PO SCH (21:46)
[2016-07-25] MEDS: QUETIAPINE 25 MG TAB PO SCH (21:46)
[2016-07-26] VITALS (13 sets, daily range): BP systolic 105–166; BP diastolic 57–90; PULSE 62–134; RESP 18–21
[2016-07-26] MEDS: FERROUS FUMARATE (SR) TAB PO SCH ×3 (00:26→22:03)
[2016-07-26] MEDS: PANTOPRAZOLE (EC) 40 MG TAB PO SCH (05:02)
[2016-07-26 06:24] LABS: BASOPHIL # 0.1 10^3/ul (0.0-0.1); BASOPHILS % 0.9 % (0.0-2.0); EOSINOPHILS % 16.2 % (0.0-7.0); HEMATOCRIT 34.8 % (37.0-47.0); HEMOGLOBIN 11.8 g/dl (12.0-16.0); LYMPHOCYTES # 1.3 10^3/ul (0.8-2.9); LYMPHOCYTES % 21.1 % (15.0-51.0); MEAN CORPUSCULAR HEMOGLOBIN 31.6 pg (29.0-33.0); MEAN CORPUSCULAR HGB CONC 33.7 g/dl (32.0-37.0); MEAN CORPUSCULAR VOLUME 93.8 fl (82.0-101.0); MEAN PLATELET VOLUME 8.3 fl (7.4-10.4); MONOCYTE # 0.6 10^3/ul (0.3-0.9); MONOCYTES % 9.2 % (0.0-11.0); NEUTROPHIL # 3.2 10^3/ul (1.6-7.5); NEUTROPHILS % 52.6 % (39.0-77.0); PLATELET COUNT 200 10^3/UL (140-440); RED BLOOD COUNT 3.71 10^6/ul (4.20-5.40); RED CELL DISTRIBUTION WIDTH 16.4 % (11.5-14.5); UNCORRECTED WBC 6.1 10^3/ul (4.8-10.8); WHITE BLOOD COUNT 6.1 10^3/ul (4.8-10.8)
[2016-07-26 06:27] LABS: CONDITION 1; LH ANALYZER COMMENTS 1
[2016-07-26] MEDS: MULTIVITAMINS/MINERALS TAB PO SCH (08:42)
[2016-07-26] MEDS: ASPIRIN (EC) 325 MG TAB PO SCH ×2 (08:42→22:03)
[2016-07-26] MEDS: SENNA/DOCUSATE NA (8.6MG/50MG) TAB PO SCH ×3 (08:42→22:02)
[2016-07-26] MEDS: METOPROLOL (XL) 25 MG TAB PO SCH (08:42)
[2016-07-26] MEDS: CELECOXIB 200 MG CAP PO SCH ×2 (08:42→22:03)
[2016-07-26] MEDS: DEXAMETHASONE 4 MG TAB PO SCH (08:42)
[2016-07-26] MEDS: ATORVASTATIN 20 MG TAB PO SCH (08:42)
[2016-07-26] MEDS ORDERED: ADENOSINE 3 MG/ML SYRINGE IV STA (10:56)
[2016-07-26] MEDS ORDERED: ADENOSINE 6 MG INJ IV PRN (11:30)
[2016-07-26] MEDS: DILTIAZEM 30 MG TAB PO SCH ×2 (11:55→18:50)
--- NOTE | 2016-07-26 12:03 | CONS ---
Date/Time of Note Date/Time of Note DATE: 07/26/16 TIME: 11:56 Assessment/Plan Assessment/Plan Additional Assessment/Plan Supraventricular tachycardia Hip fracture status post repair Aortic stenosis status post aortic valve replacement Hypertension Delirium History of dementia -Patient with SVT noted on telemetry and ECG. Initially adenosine 6 mg was given without a result, then gave 12 mg IV and patient currently in sinus rhythm. Would start Cardizem by mouth. Patient on multiple QT prolonging agents including Seroquel, trazodone, Haldol. Unable to start amiodarone to help maintain in sinus rhythm. I did discuss this with the patient's primary physician Dr. Whiting, patient has been on trazodone for approximately one month, would stop Seroquel and continue Haldol when necessary. If recurrent episodes of arrhythmias, would consider discontinuing Haldol at that time. Would obtain echocardiogram to eval LV function. Would also check chemistry panel and magnesium level and maintain potassium above 4.0 and magnesium above 2.0. Consultation Date/Type/Reason Admit Date/Time Jul 21, 2016 at 05:27 Type of Consultation: cv Reason for Consultation Supraventricular tachycardia Hx of Present Illness This is an 89-year-old female with history of aortic valve replacement, hypertension, progressive dementia who underwent surgery for a hip fracture. Patient was postoperative delirium. Yesterday, patient noted to be tachycardic and SVT. Patient transferred to telemetry. Patient's son-in-law at bedside. He does recall issues of tachycardia in the past and has had her beta paul dose adjusted as well as episodes of bradycardia. Unfortunate, patient unable to give history at the current time. She does answer occasional questions. She denies chest pain, shortness of breath or palpitations. Constitutional: improved, no complaints Respiratory: no complaints Cardiovascular: no complaints Gastrointestinal: no complaints Genitourinary: no complaints Musculoskeletal: no complaints Neurologic: confusion (family reports pt. confused and agitated, not sleeping well. Quetiapine was helpful but has not solved the problem) Psychological: confusion Past Medical History Aortic stenosis status post replacement Hypertension Dementia Past Surgical History Aortic valve replacement Family History Significant Family History: no pertinent family hx Social History Alcohol Use: none Smoking Status: Never smoker Exam/Review of Systems Vital Signs Vitals Vital Signs Date Time Temp Pulse Resp B/P Pulse Ox O2 Delivery O2 Flow Rate FiO2 07/26/16 11:14 98.8 132 18 133/90 94 07/26/16 04:00 Room Air Intake and Output 07/25/16 07/25/16 07/26/16 15:00 23:00 07:00 Intake Total 200 ml 420 ml Output Total 450 ml Balance -250 ml 420 ml Exam Sleeping but arousable, moaning at times Head: normocephalic Neck: supple Respiratory: other (course breath sounds bilaterally, no wheezing) Cardiovascular: other (tachycardic and regular) Gastrointestinal: bowel sounds, non-tender, soft Extremities: edema (trace) Results Result Diagram: 07/26/16 0554 07/24/16 0415 Results 24 hrs Laboratory Tests Test 07/26/16 05:54 Basophils # 0.1 Basophils % 0.9 Blood Morphology Comment Eosinophils # 1.0 H Eosinophils % 16.2 H Hematocrit 34.8 #L Hemoglobin 11.8 #L Lymphocytes # 1.3 Lymphocytes % 21.1 Mean Corpuscular Hemoglobin 31.6 Mean Corpuscular Hemoglobin Concent 33.7 Mean Corpuscular Volume 93.8 Mean Platelet Volume 8.3 Monocytes # 0.6 Monocytes % 9.2 Neutrophils # 3.2 Neutrophils % 52.6 Nucleated Red Blood Cells # 0.0 Nucleated Red Blood Cells % 0.0 Platelet Count 200 Red Blood Count 3.71 #L Red Cell Distribution Width 16.4 H White Blood Count 6.1 Medications Medications Current Medications Oxycodone HCl (Roxicodone) 10 mg Q3H PRN PO PAIN LEVEL 4-7 Last administered on 07/25/16 15:28; Admin Dose 10 MG; Start 07/21/16 at 10:00 Zolpidem Tartrate (Ambien) 5 mg HS PRN PO INSOMNIA; Start 07/21/16 at 10:00 Aspirin (Ecotrin) 325 mg BID PO Last administered on 07/26/16 08:42; Admin Dose 325 MG; Start 07/22/16 at 09:00 Celecoxib (Celebrex) 200 mg BID PO Last administered on 07/26/16 08:42; Admin Dose 200 MG; Start 07/22/16 at 09:00 Pantoprazole (Protonix Tab) 40 mg DAILY@06 PO Last administered on 07/26/16 05: 02; Admin Dose 40 MG; Start 07/22/16 at 06:00 Docusate Sodium/ Ferrous Fumarate (Tyree-Sequels) 1 tab BID PO Last administered on 07/26/16 08:42; Admin Dose 1 TAB; Start 07/22/16 at 09:00 Simethicone (Mylicon) 80 mg TID PRN PO DISTENSION/GAS/BLOATING; Start 07/21/16 at 10:00 Magnesium Hydroxide (Milk Of Mag) 30 ml HS PRN PO CONSTIPATION Last administered on 07/24/16 22:29; Admin Dose 30 ML; Start 07/21/16 at 10:00 Bisacodyl (Dulcolax Supp) 10 mg DAILY PRN [place] CONSTIPATION; Start 07/21/16 at 10: 00 Sodium Biphosphate/ Sodium Phosphate (Fleet Enema) 133 ml DAILY PRN [place] CONSTIPATION; Start 07/21/16 at 10:00 Diphenhydramine HCl (Benadryl) 25 mg Q4H PRN IM ITCHING OR RASH Last administered on 07/21/16 14:23; Admin Dose 25 MG; Start 07/21/16 at 10:00 Naloxone HCl (Narcan) 0.2 mg Q2M PRN IV DECREASED REPIRATORY RATE; Start at 10:00 Atorvastatin Calcium (Lipitor) 20 mg DAILY PO Last administered on 07/26/16 08: 42; Admin Dose 20 MG; Start 07/22/16 at 09:00 Multivitamins/ Minerals (Theragran-M) 1 tab DAILY PO Last administered on 08:42; Admin Dose 1 TAB; Start 07/22/16 at 09:00 Trazodone HCl (Desyrel) 50 mg QHS PO Last administered on 07/25/16 21:46; Admin Dose 50 MG; Start 07/21/16 at 17:20 Dexamethasone (Decadron) 4 mg DAILY PO Last administered on 07/26/16 08:42; Admin Dose 4 MG; Start 07/23/16 at 12:00; Stop 08/02/16 at 11:59 Quetiapine Fumarate (Seroquel) 50 mg HS PO Last administered on 07/25/16 21:46 ; Admin Dose 50 MG; Start 07/23/16 at 17:00 Senna/Docusate Sodium (Senokot-S) 3 tab TID PO Last administered on 07/26/16 08 :42; Admin Dose 3 TAB; Start 07/25/16 at 13:00 Haloperidol (Haldol) 1 mg Q6 PRN IV AGITATION/ANXIETY; Start 07/25/16 at 10:30 Diltiazem HCl (Cardizem) 30 mg Q6 PO ; Start 07/26/16 at 12:00 Adenosine (Adenosine) 12 mg ONCE PRN IV svt Last administered on 07/26/16 11:43 ; Admin Dose 12 MG; Start 07/26/16 at 11:30; Stop 07/26/16 at 23:00 Procedures Procedures ECG done on 07/16 demonstrated sinus rhythm with first-degree AV block, QRS 76 ms ECG done yesterday demonstrates super ventricular tachycardia at 132 bpm, QRS 64 ms Bipin Hayes DO Jul 26, 2016 12:02
[2016-07-26 12:48] LABS: POTASSIUM 4.5 mmol/L (3.5-5.1)
[2016-07-26 12:51] LABS: CREATININE 0.57 mg/dl (0.44-1.00)
[2016-07-26 12:52] LABS: CALCIUM 8.6 mg/dl (8.4-10.2); MAGNESIUM 2.3 mg/dl (1.7-2.5)
--- NOTE | 2016-07-26 14:27 | PN ---
DATE: 07/26/2016 Patient seen approximately 8:00 a.m. Patient resting comfortably in telemetry unit was transferred there because of paroxysmal atrial tac hycardia/atrial arrhythmia which seems to be under control at the time of my visit, albeit the patie nt seemed to be resting and not really answering questions appropriately. PHYSICAL EXAMINATION: VITAL SIGNS: Revealed the following: Her blood pressure was 108/57, pulse was 87, temperature 97.9 , respiratory rate 20, O2 saturation 91% on room air. HEENT: Unremarkable. LUNGS: Sounded clear. HEART: Revealed a regular rhythm. IMPRESSION: 1. Paroxysmal atrial tachycardia, currently apparently sinus rhythm. 2. 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 3. Hypertension. 4. Dementia. 5. Stable health currently. DISCUSSION: Review of laboratory and other data revealed the following: The patient's hemoglobin a nd hematocrit post-transfusion was stable. Her chemistries revealed normal electrolytes, BUN, gluco se, etc. and her liver function tests were also normal the last time they were checked up. PLAN: As per cardiology. We will also try and get social services specialist involved in terms of ultimate pl acement after her arrhythmia stabilizes. Dictated By: BRUNO MCGRATH/SHARON Conf#: [id number] DID#: [id number]
--- NOTE | 2016-07-26 16:05 | RADRPT ---
Echocardiogram Report Patient Name: KARINA WIGGINS Gender: Female Date: 1925 Study Date: 26-Jul-2016 Singing Messenger: Dewayne Bear [facility] Location: 514 Ref. Physician: BIPIN JENNINGS Quality: Good Procedures: Transthoracic echocardiogram with complete 2D, M-Mode, and doppler examination. Indications: SVT. 2D/M Mode Doppler Measurement Value Normal Ranges Measurement Value Normal Ranges LVIDd 2D 4.1 3.5 - 5.6 cm AV Mean Isai 1.5 m/sec LVIDs 2D 1.7 2.1 - 4.1 cm AV Mean PG 10.4 mmHg LVPWd 2D 0.8 0.6 - 1.1 cm AV Peak Isai 2.2 m/sec IVSd 2D 0.8 0.6 - 1.1 cm AV Peak PG 20.0 mmHg AoR Diam 2D 2.2 2.0 - 3.7 cm AV VTI 46.6 cm EDV 2D 73.9 cm3 LVOT Mean Isai 1.1 m/sec ESV 2D 5.1 cm3 LVOT Mean PG 5.7 mmHg LA Dimen 2D 3.5 2.3 - 4.0 cm LVOT Peak Isai 1.6 m/sec LVOT Peak PG 9.9 mmHg LVOT VTI 33.8 cm MV E Peak Isai 0.7 m/sec MV A Peak Isai 0.5 m/sec MV E/A 1.5 MV Decel Time 131 msec MV Decel [place] 6 MV E/A 1.5 TR Peak Isai 2.7 m/sec TR Peak PG 29.7 mmHg RVSP 38.0 mmHg Findings Left Ventricle: Normal left ventricular systolic function. Normal left ventricular cavity size. Normal left ventricular wall thickness. Ejection fraction is visually estimated at 60 %. Abnormal Diastolic Function. Right Ventricle: Not well visualized. Moderate enlargement of right ventricle. Moderate right ventricular hypokinesis. Left Atrium: The left atrium is normal in size. Right Atrium: There is moderate enlargement of right atrium. Mitral Valve: Mitral valve leaflets appear mildly thickened. Mild mitral annular calcification. Mild mitral valve regurgitation. Aortic Valve: Aortic Valve Bio Prosthesis with normal function. Aortic valve Max velocity 2.24 m/sec. Max PG 20.00 mmHg. Mean PG 10.00 mmHg. No aortic regurgitation. Tricuspid Valve: Normal appearance of the tricuspid valve. Estimated peak PA systolic pressure 38 mmHg. There is moderate tricuspid regurgitation. Pulmonic Valve: Pulmonic valve not well visualized. There is mild pulmonic regurgitation. Pericardium: Normal pericardium with no significant pericardial effusion. Left pleural effusion seen. Aorta: Normal aortic root. IVC: Normal size and no respiratory collapse consistent with elevated right atrial pressure. Conclusions Normal left ventricular systolic function. Normal left ventricular cavity size. Normal left ventricular wall thickness. Ejection fraction is visually estimated at 60 %. Abnormal Diastolic Function. Moderate enlargement of right ventricle. Moderate right ventricular hypokinesis. The left atrium is normal in size. There is moderate enlargement of right atrium. Aortic Valve Bio Prosthesis with normal function. Mild mitral valve regurgitation. Estimated peak PA systolic pressure 38 mmHg. There is moderate tricuspid regurgitation. Normal pericardium with no significant pericardial effusion. Left pleural effusion seen. Electronically Signed By: Bipin Jennings 26-Jul-2016 16:04:51 -0800 Patient Name: KARINA WIGGINS Study Date: 26-Jul-2016 [id number]
[2016-07-26] MEDS: oxyCODONE 5 MG TAB PO PRN (22:03)
[2016-07-26] MEDS: traZODone 50 MG TAB PO SCH (22:03)
[2016-07-27] VITALS (12 sets, daily range): BP systolic 102–153; BP diastolic 59–94; PULSE 62–134; RESP 18–22
[2016-07-27] MEDS: DILTIAZEM 30 MG TAB PO SCH ×3 (03:11→13:15)
[2016-07-27] MEDS: oxyCODONE 5 MG TAB PO PRN ×2 (03:12→21:02)
[2016-07-27] MEDS: PANTOPRAZOLE (EC) 40 MG TAB PO SCH (06:26)
[2016-07-27 06:57] LABS: BASOPHILS % 0.6 % (0.0-2.0); EOSINOPHILS # 0.3 10^3/ul (0.0-0.5); EOSINOPHILS % 3.4 % (0.0-7.0); HEMOGLOBIN 11.4 g/dl (12.0-16.0); LYMPHOCYTES # 1.2 10^3/ul (0.8-2.9); MEAN CORPUSCULAR HEMOGLOBIN 31.6 pg (29.0-33.0); MEAN CORPUSCULAR HGB CONC 33.4 g/dl (32.0-37.0); MEAN CORPUSCULAR VOLUME 94.7 fl (82.0-101.0); MEAN PLATELET VOLUME 8.4 fl (7.4-10.4); MONOCYTE # 0.8 10^3/ul (0.3-0.9); MONOCYTES % 10.7 % (0.0-11.0); NEUTROPHIL # 5.2 10^3/ul (1.6-7.5); NEUTROPHILS % 69.3 % (39.0-77.0); PLATELET COUNT 262 10^3/UL (140-440); RED BLOOD COUNT 3.59 10^6/ul (4.20-5.40); RED CELL DISTRIBUTION WIDTH 16.7 % (11.5-14.5); UNCORRECTED WBC 7.5 10^3/ul (4.8-10.8); WHITE BLOOD COUNT 7.5 10^3/ul (4.8-10.8)
[2016-07-27 07:01] LABS: CONDITION 1; LH ANALYZER COMMENTS 1
[2016-07-27 07:57] LABS: POTASSIUM 4.7 mmol/L (3.5-5.1)
[2016-07-27 08:00] LABS: CREATININE 0.73 mg/dl (0.44-1.00)
[2016-07-27 08:01] LABS: CALCIUM 8.6 mg/dl (8.4-10.2)
[2016-07-27] MEDS: FERROUS FUMARATE (SR) TAB PO SCH ×2 (09:00→20:59)
[2016-07-27] MEDS: CELECOXIB 200 MG CAP PO SCH ×2 (10:12→20:59)
[2016-07-27] MEDS: ATORVASTATIN 20 MG TAB PO SCH (10:12)
[2016-07-27] MEDS: ASPIRIN (EC) 325 MG TAB PO SCH ×2 (10:13→20:59)
[2016-07-27] MEDS: DEXAMETHASONE 4 MG TAB PO SCH (10:13)
[2016-07-27] MEDS: MULTIVITAMINS/MINERALS TAB PO SCH (10:13)
[2016-07-27] MEDS: SENNA/DOCUSATE NA (8.6MG/50MG) TAB PO SCH ×3 (10:14→21:00)
[2016-07-27] MEDS ORDERED: ADENOSINE 6 MG INJ IV STA ×2 (14:03→14:44)
--- NOTE | 2016-07-27 16:39 | CONS ---
Date/Time of Note Date/Time of Note DATE: 07/27/16 TIME: 16:32 Assessment/Plan Assessment/Plan Additional Assessment/Plan Supraventricular tachycardia Hip fracture status post repair Preserved left ventricular systolic function Aortic stenosis status post aortic valve replacement Hypertension Delirium History of dementia -Patient with recurrent SVT today. Responded to 12 mg IV adenosine and converted to sinus rhythm, and then recurrent SVT. Will stop haldol and trazodone secondary to QT prolongation. Would check TSH, increase dose of Cardizem by mouth and give Cardizem IV push now. If does not convert to sinus rhythm, would plan to start antiarrhythmic tomorrow after some time for antipsychotic medications to "washout" Consultation Date/Type/Reason Admit Date/Time Jul 21, 2016 at 05:27 Initial Consult Date Type of Consultation: cv 24 HR Interval Summary Free Text/Dictation Patient with recurrent SVT this morning, mental status slightly improved but still confused Exam/Review of Systems Vital Signs Vitals Vital Signs Date Time Temp Pulse Resp B/P Pulse Ox O2 Delivery O2 Flow Rate FiO2 07/27/16 16:12 134 07/27/16 15:36 98.0 20 117/76 95 07/27/16 08:30 Room Air Intake and Output 07/26/16 07/26/16 07/27/16 15:00 23:00 07:00 Intake Total 400 ml Balance 400 ml Exam Awake, follows commands, confused at times Head: normocephalic Neck: supple Respiratory: other (course breath sounds bilaterally, no wheezing) Cardiovascular: other (tachycardic, S1-S2 heard) Gastrointestinal: bowel sounds, non-tender, soft Extremities: other (no edema) Results Result Diagram: 07/27/16 0601 07/27/16 0544 Results 24 hrs Laboratory Tests Test 07/27/16 05:44 07/27/16 06:01 Anion Gap 9 Blood Urea Nitrogen 32 H Calcium Level 8.6 Carbon Dioxide Level 31 Chloride Level 106 Creatinine 0.73 Glucose Level 96 Potassium Level 4.7 Sodium Level 141 Basophils # 0.0 Basophils % 0.6 Blood Morphology Comment Eosinophils # 0.3 Eosinophils % 3.4 Hematocrit 34.0 L Hemoglobin 11.4 L Lymphocytes # 1.2 Lymphocytes % 16.0 Mean Corpuscular Hemoglobin 31.6 Mean Corpuscular Hemoglobin Concent 33.4 Mean Corpuscular Volume 94.7 Mean Platelet Volume 8.4 Monocytes # 0.8 Monocytes % 10.7 Neutrophils # 5.2 Neutrophils % 69.3 Nucleated Red Blood Cells # 0.0 Nucleated Red Blood Cells % 0.0 Platelet Count 262 # Red Blood Count 3.59 L Red Cell Distribution Width 16.7 H White Blood Count 7.5 # Medications Medications Current Medications Oxycodone HCl (Roxicodone) 10 mg Q3H PRN PO PAIN LEVEL 4-7 Last administered on 07/27/16 03:12; Admin Dose 10 MG; Start 07/21/16 at 10:00 Zolpidem Tartrate (Ambien) 5 mg HS PRN PO INSOMNIA; Start 07/21/16 at 10:00 Aspirin (Ecotrin) 325 mg BID PO Last administered on 07/27/16 10:13; Admin Dose 325 MG; Start 07/22/16 at 09:00 Celecoxib (Celebrex) 200 mg BID PO Last administered on 07/27/16 10:12; Admin Dose 200 MG; Start 07/22/16 at 09:00 Pantoprazole (Protonix Tab) 40 mg DAILY@06 PO Last administered on 07/27/16 06 :26; Admin Dose 40 MG; Start 07/22/16 at 06:00 Docusate Sodium/ Ferrous Fumarate (Tyree-Sequels) 1 tab BID PO Last administered on 07/27/16 09:00; Admin Dose 1 TAB; Start 07/22/16 at 09:00 Simethicone (Mylicon) 80 mg TID PRN PO DISTENSION/GAS/BLOATING; Start 07/21/16 at 10:00 Magnesium Hydroxide (Milk Of Mag) 30 ml HS PRN PO CONSTIPATION Last administered on 07/24/16 22:29; Admin Dose 30 ML; Start 07/21/16 at 10:00 Bisacodyl (Dulcolax Supp) [address] CONSTIPATION; Start 07/21/16 at 10: 00 Sodium Biphosphate/ Sodium Phosphate (Fleet Enema) [address] CONSTIPATION; Start 07/21/16 at 10:00 Diphenhydramine HCl (Benadryl) 25 mg Q4H PRN IM ITCHING OR RASH Last administered on 07/21/16 14:23; Admin Dose 25 MG; Start 07/21/16 at 10:00 Naloxone HCl (Narcan) 0.2 mg Q2M PRN IV DECREASED REPIRATORY RATE; Start at 10:00 Atorvastatin Calcium (Lipitor) 20 mg DAILY PO Last administered on 07/27/16 10 :12; Admin Dose 20 MG; Start 07/22/16 at 09:00 Multivitamins/ Minerals (Theragran-M) 1 tab DAILY PO Last administered on 10:13; Admin Dose 1 TAB; Start 07/22/16 at 09:00 Trazodone HCl (Desyrel) 50 mg QHS PO Last administered on 07/26/16 22:03; Admin Dose 50 MG; Start 07/21/16 at 17:20 Dexamethasone (Decadron) 4 mg DAILY PO Last administered on 07/27/16 10:13; Admin Dose 4 MG; Start 07/23/16 at 12:00; Stop 08/02/16 at 11:59 Senna/Docusate Sodium (Senokot-S) 3 tab TID PO Last administered on 07/27/16 13:15; Admin Dose 3 TAB; Start 07/25/16 at 13:00 Haloperidol (Haldol) 1 mg Q6 PRN IV AGITATION/ANXIETY; Start 07/25/16 at 10:30 Diltiazem HCl (Cardizem) 30 mg Q6 PO Last administered on 07/27/16 13:15; Admin Dose 30 MG; Start 07/26/16 at 12:00 Bipin Hayes DO Jul 27, 2016 16:39
[2016-07-27] MEDS ORDERED: MAGNESIUM SULFATE 1 GM/D5W 100 ML IVPB ONE (17:00)
[2016-07-27] MEDS ORDERED: DILTIAZEM 25 MG INJ IV ONE (17:00)
[2016-07-27] MEDS ORDERED: SOD CHLORIDE 0.9% 250 ML IV ONE (17:00)
[2016-07-27] MEDS: DILTIAZEM 60 MG TAB PO SCH (19:06)
[2016-07-28] VITALS (13 sets, daily range): BP systolic 128–176; BP diastolic 62–87; PULSE 57–118; RESP 18–22
[2016-07-28] MEDS: DILTIAZEM 60 MG TAB PO SCH ×4 (00:39→18:14)
[2016-07-28] MEDS: ZOLPIDEM 5 MG TAB PO PRN (00:39)
[2016-07-28] MEDS: PANTOPRAZOLE (EC) 40 MG TAB PO SCH (05:27)
--- NOTE | 2016-07-28 08:54 | PN ---
DATE: 07/27/2016 TIME: Approximately 7:40 a.m. SUBJECTIVE: The patient is sleeping and hard to arouse or disturb. Someone says she has been sleeping for a while, but does seem to be more peaceful and more comfortable; however, has barely eaten or drank anything. PHYSICAL EXAMINATION: VITAL SIGNS: Revealed the following: Blood pressure 125/84, pulse again 101, temperature 98.2, O2 saturation 95%. HEENT: Negative. LUNGS: Clear. HEART: At the time of my exam was regular. IMPRESSION: 1. Status post total hip replacement. 2. Paroxysmal atrial tachycardia. 3. Hypertension by history. 4. Dementia. 5. Possible dehydration. DISCUSSION: Review of laboratory and other data revealed the following: The patient's CBC revealed a normal hemoglobin and hematocrit and white count. The patient's chemistries revealed normal electrolytes, creatinine, BUN, as well as glucose, and even calcium was normal. PLAN: To try and hydrate the patient a little bit more than what she is currently, albeit she is getting some fluid hydration at this point in time, and also see whether or not some of her sedation can be diminished to have her more alert. The issue with that, however, is that she becomes combative when she is not sedated. CONDITION: Still fairly guarded at this particular point in time. Dictated By: BRUNO MCGRATH/SHARON Conf#: [id number] DID#: [id number] MTDD
[2016-07-28] MEDS: MULTIVITAMINS/MINERALS TAB PO SCH (09:02)
[2016-07-28] MEDS: DEXAMETHASONE 4 MG TAB PO SCH (09:03)
[2016-07-28] MEDS: FERROUS FUMARATE (SR) TAB PO SCH ×2 (09:04→20:35)
[2016-07-28] MEDS: ASPIRIN (EC) 325 MG TAB PO SCH ×2 (09:04→20:35)
[2016-07-28] MEDS: oxyCODONE 5 MG TAB PO PRN (09:04)
[2016-07-28] MEDS: CELECOXIB 200 MG CAP PO SCH ×2 (09:04→20:35)
[2016-07-28] MEDS: SENNA/DOCUSATE NA (8.6MG/50MG) TAB PO SCH ×3 (09:05→20:35)
[2016-07-28] MEDS: ATORVASTATIN 20 MG TAB PO SCH (09:16)
[2016-07-28 09:41] LABS: BASOPHILS % 0.4 % (0.0-2.0); EOSINOPHILS # 0.1 10^3/ul (0.0-0.5); EOSINOPHILS % 1.3 % (0.0-7.0); HEMATOCRIT 37.5 % (37.0-47.0); HEMOGLOBIN 12.5 g/dl (12.0-16.0); LYMPHOCYTES # 1.1 10^3/ul (0.8-2.9); LYMPHOCYTES % 17.3 % (15.0-51.0); MEAN CORPUSCULAR HEMOGLOBIN 31.4 pg (29.0-33.0); MEAN CORPUSCULAR HGB CONC 33.4 g/dl (32.0-37.0); MEAN CORPUSCULAR VOLUME 94.1 fl (82.0-101.0); MONOCYTE # 0.7 10^3/ul (0.3-0.9); MONOCYTES % 10.5 % (0.0-11.0); NEUTROPHIL # 4.5 10^3/ul (1.6-7.5); NEUTROPHILS % 70.5 % (39.0-77.0); PLATELET COUNT 305 10^3/UL (140-440); RED BLOOD COUNT 3.99 10^6/ul (4.20-5.40); RED CELL DISTRIBUTION WIDTH 15.9 % (11.5-14.5); UNCORRECTED WBC 6.4 10^3/ul (4.8-10.8); WHITE BLOOD COUNT 6.4 10^3/ul (4.8-10.8)
[2016-07-28 09:47] LABS: CONDITION 1; LH ANALYZER COMMENTS 1
[2016-07-28 09:48] LABS: POTASSIUM 4.3 mmol/L (3.5-5.1)
[2016-07-28 09:51] LABS: CREATININE 0.54 mg/dl (0.44-1.00)
[2016-07-28 09:52] LABS: CALCIUM 8.7 mg/dl (8.4-10.2)
[2016-07-28 09:53] LABS: MAGNESIUM 2.1 mg/dl (1.7-2.5)
[2016-07-28 10:23] LABS: THYROID STIMULATING HORMONE 1.87 MIU/L (0.465-4.680)
--- NOTE | 2016-07-28 12:41 | PN ---
DATE: 07/28/2016 Patient seen at approximately 8:00 a.m. 07/28/2016 SUBJECTIVE: The patient is quite drowsy this morning; however, does react at least to touch stimuli and not so much to sound stimuli. She has not been eating much and is not at this point cooperatin g with physical therapy when they come around. PHYSICAL EXAMINATION: VITAL SIGNS: Temperature is 97.6, pulse 69, respirations 20, O2 saturation 91%, blood pressure 160/ 78. HEENT: Unremarkable. LUNGS: Clear. HEART: At this time regular rhythm. Rest of the exam is unremarkable. IMPRESSION: 1. Status post total hip replacement and hip fracture, right hip. 2. Paroxysmal atrial tachycardia. 3. Hypertension. 4. Altered mental cognitive disorder. DISCUSSION: Problem discussed with the family, apparently if she is sedated she gets very sleepy. If she is not sedated she becomes combative and it has been hard for physical therapy to work with h er caught in a bad spot. At this point hopefully her cardiac status will be stable and case manageme nt to decide what may be appropriate at this point for this patient. The patient otherwise is stabl e; however, she has not been eating and fear is that she may get dehydrated. Laboratory today are n ot available because patient did not let the fountain attendant draw her blood today. Dictated By: BRUNO BENAVIDES MD SS/NTS Conf#: [id number] DID#: [id number]
--- NOTE | 2016-07-28 18:49 | CONS ---
Date/Time of Note Date/Time of Note DATE: 07/28/16 TIME: 18:47 Assessment/Plan Assessment/Plan Additional Assessment/Plan Supraventricular tachycardia Hip fracture status post repair Preserved left ventricular systolic function Aortic stenosis status post aortic valve replacement Hypertension Delirium History of dementia -Patient with improvement in heart rates and remains in sinus rhythm after IV Cardizem push and increase dose of by mouth Cardizem. Would hold off on initiation of any antiarrhythmics given patient's family feel strongly trazodone helps her overall mental status. Would restart trazodone this evening , if heart rate remains controlled, would switch Cardizem to twice a day dosing in the next 24 hours. Consultation Date/Type/Reason Admit Date/Time Jul 21, 2016 at 05:27 Type of Consultation: cv 24 HR Interval Summary Free Text/Dictation Patient denies shortness of breath or chest pain. Family requesting trazodone to be restarted Exam/Review of Systems Vital Signs Vitals Vital Signs Date Time Temp Pulse Resp B/P Pulse Ox O2 Delivery O2 Flow Rate FiO2 07/28/16 18:00 98.0 91 20 130/81 96 Room Air Intake and Output 07/27/16 07/27/16 07/28/16 15:00 23:00 07:00 Intake Total 550 ml 600 ml Balance 550 ml 600 ml Exam Confused at times, no apparent distress Constitutional: alert, frail Head: normocephalic Neck: supple Respiratory: other (course breath sounds bilaterally, no wheezing) Cardiovascular: other (S1-S2 heard), regular rate and rhythm Gastrointestinal: bowel sounds, non-tender, soft Extremities: other (no edema) Results Result Diagram: 07/28/16 0920 07/28/16 0920 Results 24 hrs Laboratory Tests Test 07/28/16 09:20 Anion Gap 10 Basophils # 0.0 Basophils % 0.4 Blood Morphology Comment Blood Urea Nitrogen 26 H Calcium Level 8.7 Carbon Dioxide Level 27 Chloride Level 106 Creatinine 0.54 Eosinophils # 0.1 Eosinophils % 1.3 Glucose Level 124 Hematocrit 37.5 Hemoglobin 12.5 Lymphocytes # 1.1 Lymphocytes % 17.3 Magnesium Level 2.1 Mean Corpuscular Hemoglobin 31.4 Mean Corpuscular Hemoglobin Concent 33.4 Mean Corpuscular Volume 94.1 Mean Platelet Volume 8.0 Monocytes # 0.7 Monocytes % 10.5 Neutrophils # 4.5 Neutrophils % 70.5 Nucleated Red Blood Cells # 0.0 Nucleated Red Blood Cells % 0.0 Platelet Count 305 Potassium Level 4.3 Red Blood Count 3.99 L Red Cell Distribution Width 15.9 H Sodium Level 139 Thyroid Stimulating Hormone (TSH) 1.870 White Blood Count 6.4 Medications Medications Current Medications Oxycodone HCl (Roxicodone) 10 mg Q3H PRN PO PAIN LEVEL 4-7 Last administered on 07/28/16 09:04; Admin Dose 10 MG; Start 07/21/16 at 10:00 Zolpidem Tartrate (Ambien) 5 mg HS PRN PO INSOMNIA Last administered on 00:39; Admin Dose 5 MG; Start 07/21/16 at 10:00 Aspirin (Ecotrin) 325 mg BID PO Last administered on 07/28/16 09:04; Admin Dose 325 MG; Start 07/22/16 at 09:00 Celecoxib (Celebrex) 200 mg BID PO Last administered on 07/28/16 09:04; Admin Dose 200 MG; Start 07/22/16 at 09:00 Pantoprazole (Protonix Tab) 40 mg DAILY@06 PO Last administered on 07/28/16 05 :27; Admin Dose 40 MG; Start 07/22/16 at 06:00 Docusate Sodium/ Ferrous Fumarate (Tyree-Sequels) 1 tab BID PO Last administered on 07/28/16 09:04; Admin Dose 1 TAB; Start 07/22/16 at 09:00 Simethicone (Mylicon) 80 mg TID PRN PO DISTENSION/GAS/BLOATING; Start 07/21/16 at 10:00 Magnesium Hydroxide (Milk Of Mag) 30 ml HS PRN PO CONSTIPATION Last administered on 07/24/16 22:29; Admin Dose 30 ML; Start 07/21/16 at 10:00 Bisacodyl (Dulcolax Supp) 10 mg DAILY PRN [place] CONSTIPATION; Start 07/21/16 at 10: 00 Sodium Biphosphate/ Sodium Phosphate (Fleet Enema) 133 ml DAILY PRN [place] CONSTIPATION; Start 07/21/16 at 10:00 Diphenhydramine HCl (Benadryl) 25 mg Q4H PRN IM ITCHING OR RASH Last administered on 07/21/16 14:23; Admin Dose 25 MG; Start 07/21/16 at 10:00 Naloxone HCl (Narcan) 0.2 mg Q2M PRN IV DECREASED REPIRATORY RATE; Start at 10:00 Atorvastatin Calcium (Lipitor) 20 mg DAILY PO Last administered on 07/28/16 09 :16; Admin Dose 20 MG; Start 07/22/16 at 09:00 Multivitamins/ Minerals (Theragran-M) 1 tab DAILY PO Last administered on 09:02; Admin Dose 1 TAB; Start 07/22/16 at 09:00 Dexamethasone (Decadron) 4 mg DAILY PO Last administered on 07/28/16 09:03; Admin Dose 4 MG; Start 07/23/16 at 12:00; Stop 08/02/16 at 11:59 Senna/Docusate Sodium (Senokot-S) 3 tab TID PO Last administered on 07/28/16 14:22; Admin Dose 3 TAB; Start 07/25/16 at 13:00 Diltiazem HCl (Cardizem) 60 mg Q6 PO Last administered on 07/28/16 18:14; Admin Dose 60 MG; Start 07/27/16 at 18:00 Bipin Hayes DO Jul 28, 2016 18:49
[2016-07-28] MEDS: traZODone 50 MG TAB PO SCH (20:36)
--- NOTE | 2016-07-28 22:48 | RADRPT ---
Vent Rate: 134 bpm RR Interval: 0 msec MT Interval: 0 msec QRS Duration: 62 msec QT Interval: 278 msec QTC Interval: 415 msec P-R-T [place]: 0 - 28 - 109 degrees Supraventricular tachycardia Low voltage QRS Nonspecific ST and T wave abnormality Abnormal ECG Electronically Signed By: Rosalio Lara [id number]
--- NOTE | 2016-07-28 22:49 | RADRPT ---
Vent Rate: 76 bpm RR Interval: 0 msec NC Interval: 216 msec QRS Duration: 66 msec QT Interval: 370 msec QTC Interval: 416 msec P-R-T [place]: 49 - 41 - 69 degrees Sinus rhythm with 1st degree AV block with premature atrial complexes Otherwise normal ECG Electronically Signed By: Luis Rosado [id number]
--- NOTE | 2016-07-28 22:55 | RADRPT ---
Vent Rate: 97 bpm RR Interval: 0 msec [place] Interval: 224 msec QRS Duration: 68 msec QT Interval: 336 msec QTC Interval: 426 msec P-R-T [place]: 69 - 56 - 54 degrees Sinus rhythm with 1st degree AV block with premature supraventricular complexes Cannot rule out Anterior infarct , age undetermined Abnormal ECG Electronically Signed By: Luis Rosado [id number]
--- NOTE | 2016-07-28 22:55 | RADRPT ---
Vent Rate: 133 bpm RR Interval: 0 msec MI Interval: 328 msec QRS Duration: 62 msec QT Interval: 134 msec QTC Interval: 199 msec P-R-T [place]: 35 - 29 - 180 degrees Sinus tachycardia with 1st degree AV block Cannot rule out Anterior infarct , age undetermined Abnormal ECG Electronically Signed By: Luis Rosado [id number]
--- NOTE | 2016-07-28 22:56 | RADRPT ---
Vent Rate: 134 bpm RR Interval: 0 msec [place] Interval: 0 msec QRS Duration: 62 msec QT Interval: 294 msec QTC Interval: 439 msec P-R-T [place]: 0 - 50 - 58 degrees Supraventricular tachycardia Nonspecific ST and T wave abnormality Abnormal ECG Electronically Signed By: Luis Rosado [id number]
[2016-07-29] VITALS (15 sets, daily range): BP systolic 126–166; BP diastolic 63–95; PULSE 70–160; RESP 17–20
[2016-07-29] MEDS: DILTIAZEM 60 MG TAB PO SCH ×4 (01:07→17:54)
[2016-07-29] MEDS: oxyCODONE 5 MG TAB PO PRN ×2 (01:55→20:29)
[2016-07-29] MEDS: ZOLPIDEM 5 MG TAB PO PRN (01:55)
[2016-07-29] MEDS: METOPROLOL 5 MG INJ IV PRN (03:39)
[2016-07-29] MEDS: PANTOPRAZOLE (EC) 40 MG TAB PO SCH (05:42)
[2016-07-29] MEDS: CELECOXIB 200 MG CAP PO SCH ×2 (09:32→20:29)
[2016-07-29] MEDS: SENNA/DOCUSATE NA (8.6MG/50MG) TAB PO SCH ×3 (09:33→20:29)
[2016-07-29] MEDS: DEXAMETHASONE 4 MG TAB PO SCH (09:33)
[2016-07-29] MEDS: FERROUS FUMARATE (SR) TAB PO SCH ×2 (09:33→20:30)
[2016-07-29] MEDS: ASPIRIN (EC) 325 MG TAB PO SCH ×2 (09:33→20:29)
[2016-07-29] MEDS: MULTIVITAMINS/MINERALS TAB PO SCH (09:33)
[2016-07-29] MEDS: ATORVASTATIN 20 MG TAB PO SCH (09:33)
--- NOTE | 2016-07-29 10:53 | PDOCDIS ---
Discharge Instructions CONDITION Patient Condition: Stable HOME CARE INSTRUCTIONS: Diet Instructions: RegularSpecial Diet: low fat/chol ACTIVITY: Activity Restrictions: Slowly Increase Activity Rest between Activity Avoid heavy lifting Do not Drive Do not operate Machinery Do not operate Power Tool Avoid Heavy Housework Bathing Restrictions: ShowerActivity Restrictions Comment: WITH ASSIST OTHER ORDERS: Other Orders: Discharge to [facility] Rx for Bouse 10/325mg 1 tab po q5hr prn severe pain #45 Remainder on discharge medications will be reconciled by Dr. Garcia. DARIUS BLANKENSHIP PA-C Jul 29, 2016 10:53
--- NOTE | 2016-07-29 11:08 | DS ---
Date/Time of Note Date/Time of Note DATE: 07/29/16 TIME: 10:58 Discharge Summary Admission/Discharge Info Admit Date/Time Jul 21, 2016 at 05:27 Discharge Date/Time Final Diagnosis Status Post Right Hip Bipolar Hemiarthroplasty Hospital Course Prescription for Hominy 10/325mg 1 tab PO q5hr #45 tab provided to the Nurse (Juana ) in chart. Home Meds Reported Medications Sennosides* (Senna Lax*) 8.6 Mg Tablet, 1 TAB PO TID, TAB 07/21/16 Docusate Sodium* (Colace*) 100 Mg Capsule, 100 MG PO BID, #60 CAP 07/21/16 Trazodone Hcl* (Trazodone Hcl*) 50 Mg Tablet, 50 MG PO QHS, #30 TAB 07/21/16 Metoprolol Succinate (Toprol Xl) 50 Mg Tab.sr.24h, 50 MG PO BID 11/04/11 Aspirin (Aspirin) 81 Mg Tablet, 81 MG PO DAILY 10/12/11 Folic Acid/Mv,Fe,Other Min (Centrum Complete Multivit Tab) 1 Each Tablet, 1 EACH PO DAILY 10/12/11 Atorvastatin (Lipitor) 20 Mg Tablet, 20 MG PO DAILY 10/12/11 DARIUS BLANKENSHIP PA-C Jul 29, 2016 11:07
--- NOTE | 2016-07-29 11:10 | PN ---
DATE: SUBJECTIVE: According to her son-in-law, the patient has been more alert. Had a better night and a ctually had a better morning as well. At the time of my evaluation, the patient appeared to be aler t and was being attended to by the nurses. PHYSICAL EXAMINATION: VITAL SIGNS: Temperature 97.6, pulse 71, respiratory rate 18, blood pressure 160/75, O2 sat 94%. HEENT: Negative. LUNGS: Clear. HEART: Unremarkable at this time, albeit she went up to 123 and 141 early in the morning; the patie nt does fluctuate depending upon her agitation. IMPRESSION: 1. Status post a fractured right hip and hip replacement. 2. Hypertension. 3. Paroxysmal atrial tachycardia. 4. Dementia. DISCUSSION: Plan is to continue present treatment. Family is looking for a potential facility. Ho wever, the patient remains agitated periodically, and this causes her pulse to go up, her blood pres sure to go up, causing a difficult situation. The patient today had no laboratory. Yesterday's lab was pretty stable including CBC and chemistries. Magnesium yesterday was normal as was her TSH. A wait cardiology evaluation and also shoe planner or hospice case manager in terms of status. Thank you again, Dr. Zimmerman, allowing me to participate in the care of your patient. Dictated By: BRUNO MCGRATH/SHARON Conf#: [id number] DID#: [id number]
--- NOTE | 2016-07-29 11:39 | PN ---
DATE: 07/29/2016 The patient underwent internal fixation of a fracture of the right hip. She was transferred to the 5th floor for observation after she developed a cardiac problem. She has not been up with physical therapy for at least 4 days now. On examination, she is completely alert today. Her temperature is normal. The wound looks excellent. There is no sign of infection or inflammation. Hemoglobin is 12.5, white cell count 6.4. The patient is ready to be transferred to a convalescent facility. Unfortunately, the acute [facility] itation unit in the hospital would not accept her. The patient's preference for convalescence is [facility], but they do not have any beds. Accordingly we will attempt to get her admitted to [facility]. Dictated By: PETER MARTINEZ/SHARON Conf#: [id number] DID#: [id number]
[2016-07-29] MEDS ORDERED: AMIODARONE 200 MG TAB PO STA (14:12)
--- NOTE | 2016-07-29 14:16 | CONS ---
Date/Time of Note Date/Time of Note DATE: 07/29/16 TIME: 14:14 Assessment/Plan Assessment/Plan Additional Assessment/Plan Supraventricular tachycardia Hip fracture status post repair Preserved left ventricular systolic function Aortic stenosis status post aortic valve replacement Hypertension Delirium History of dementia -Patient with recurrent SVT last night and late this morning. Will start amiodarone and continue on telemetry monitoring. Most reason electrolytes and hemoglobin within normal limits. Consultation Date/Type/Reason Admit Date/Time Jul 21, 2016 at 05:27 Type of Consultation: cv 24 HR Interval Summary Free Text/Dictation Patient more awake today, mental status improved as per family. Patient denies chest pain or shortness of breath or palpitations Exam/Review of Systems Vital Signs Vitals Vital Signs Date Time Temp Pulse Resp B/P Pulse Ox O2 Delivery O2 Flow Rate FiO2 07/29/16 12:54 86 07/29/16 12:29 97.8 20 129/79 95 07/28/16 20:00 Room Air Intake and Output 07/28/16 07/28/16 07/29/16 15:00 23:00 07:00 Intake Total 480 ml 300 ml Balance 480 ml 300 ml Exam Follows commands, confused at times, no apparent distress Constitutional: alert Head: normocephalic Neck: supple Respiratory: other (course breath sounds bilaterally, no wheezing) Cardiovascular: other (S1-S2 heard), regular rate and rhythm Gastrointestinal: bowel sounds, non-tender, soft Extremities: other (no edema) Results Result Diagram: 07/28/1620 07/28/1620 Medications Medications Current Medications Oxycodone HCl (Roxicodone) 10 mg Q3H PRN PO PAIN LEVEL 4-7 Last administered on 07/29/16 01:55; Admin Dose 10 MG; Start 07/21/16 at 10:00 Zolpidem Tartrate (Ambien) 5 mg HS PRN PO INSOMNIA Last administered on 01:55; Admin Dose 5 MG; Start 07/21/16 at 10:00 Aspirin (Ecotrin) 325 mg BID PO Last administered on 07/29/16 09:33; Admin Dose 325 MG; Start 07/22/16 at 09:00 Celecoxib (Celebrex) 200 mg BID PO Last administered on 07/29/16 09:32; Admin Dose 200 MG; Start 07/22/16 at 09:00 Pantoprazole (Protonix Tab) 40 mg DAILY@06 PO Last administered on 07/29/16 05 :42; Admin Dose 40 MG; Start 07/22/16 at 06:00 Docusate Sodium/ Ferrous Fumarate (Tyree-Sequels) 1 tab BID PO Last administered on 07/29/16 09:33; Admin Dose 1 TAB; Start 07/22/16 at 09:00 Simethicone (Mylicon) 80 mg TID PRN PO DISTENSION/GAS/BLOATING; Start 07/21/16 at 10:00 Magnesium Hydroxide (Milk Of Mag) 30 ml HS PRN PO CONSTIPATION Last administered on 07/24/16 22:29; Admin Dose 30 ML; Start 07/21/16 at 10:00 Bisacodyl (Dulcolax Supp) 10 mg DAILY PRN [place] CONSTIPATION; Start 07/21/16 at 10: 00 Sodium Biphosphate/ Sodium Phosphate (Fleet Enema) 133 ml DAILY PRN [place] CONSTIPATION; Start 07/21/16 at 10:00 Diphenhydramine HCl (Benadryl) 25 mg Q4H PRN IM ITCHING OR RASH Last administered on 07/21/16 14:23; Admin Dose 25 MG; Start 07/21/16 at 10:00 Naloxone HCl (Narcan) 0.2 mg Q2M PRN IV DECREASED REPIRATORY RATE; Start at 10:00 Atorvastatin Calcium (Lipitor) 20 mg DAILY PO Last administered on 07/29/16 09 :33; Admin Dose 20 MG; Start 07/22/16 at 09:00 Multivitamins/ Minerals (Theragran-M) 1 tab DAILY PO Last administered on 09:33; Admin Dose 1 TAB; Start 07/22/16 at 09:00 Dexamethasone (Decadron) 4 mg DAILY PO Last administered on 07/29/16 09:33; Admin Dose 4 MG; Start 07/23/16 at 12:00; Stop 08/02/16 at 11:59 Senna/Docusate Sodium (Senokot-S) 3 tab TID PO Last administered on 07/29/16 09:33; Admin Dose 3 TAB; Start 07/25/16 at 13:00 Diltiazem HCl (Cardizem) 60 mg Q6 PO Last administered on 07/29/16 05:42; Admin Dose 60 MG; Start 07/27/16 at 18:00 Trazodone HCl (Desyrel) 50 mg HS PO Last administered on 07/28/16 20:36; Admin Dose 50 MG; Start 07/28/16 at 21:00 Metoprolol Tartrate (Lopressor) 5 mg Q3H PRN IV HR ABOVE 120/min Last administered on 07/29/16 03:39; Admin Dose 5 MG; Start 07/29/16 at 03:30 Bipin Hayes DO Jul 29, 2016 14:16
[2016-07-29] MEDS: AMIODARONE 200 MG TAB PO SCH (20:30)
[2016-07-29] MEDS: traZODone 50 MG TAB PO SCH (20:30)
[2016-07-30] VITALS (10 sets, daily range): BP systolic 159–184; BP diastolic 72–88; PULSE 66–83; RESP 18–20
[2016-07-30] MEDS: DILTIAZEM 60 MG TAB PO SCH ×3 (00:23→12:12)
[2016-07-30] MEDS: ZOLPIDEM 5 MG TAB PO PRN (00:27)
[2016-07-30] MEDS: PANTOPRAZOLE (EC) 40 MG TAB PO SCH (05:39)
[2016-07-30] MEDS: AMIODARONE 200 MG TAB PO SCH ×3 (09:12→20:14)
[2016-07-30] MEDS: FERROUS FUMARATE (SR) TAB PO SCH ×2 (09:12→20:13)
[2016-07-30] MEDS: MULTIVITAMINS/MINERALS TAB PO SCH (09:12)
[2016-07-30] MEDS: ASPIRIN (EC) 325 MG TAB PO SCH ×2 (09:12→20:13)
[2016-07-30] MEDS: ATORVASTATIN 20 MG TAB PO SCH (09:12)
[2016-07-30] MEDS: CELECOXIB 200 MG CAP PO SCH ×2 (09:12→20:13)
[2016-07-30] MEDS: SENNA/DOCUSATE NA (8.6MG/50MG) TAB PO SCH ×3 (09:12→20:13)
[2016-07-30] MEDS: DEXAMETHASONE 4 MG TAB PO SCH (09:13)
--- NOTE | 2016-07-30 10:10 | PN ---
DATE: SUBJECTIVE: The patient is much more alert this morning, seems to be doing relatively well. The gurwinder lea at this point is probably going to be going to a rehab facility for further convalescence [facility] today or tomorrow. OBJECTIVE: VITAL SIGNS: Reveals the following: Last blood pressure recorded was 166/73, pulse 77. Pulse has be en maintained relatively well through the night. Temperature 98.3, O2 saturation 93% on room air. HEENT: Unremarkable. LUNGS: Clear. HEART: Reveals a regular rhythm. IMPRESSION: 1. Status post fractured right hip and hip replacement. 2. Paroxysmal atrial tachycardia. 3. Hypertension. 4. Dementia. DISCUSSION: Review of laboratory and other data this morning is actually unavailable since none was ordered. The patient's medications were slightly modified by Dr. Hayes. She was put on amiodarone for control of her pulse. Assuming the patient is doing relatively well and a bed is available, grisel jacome will be transferred to an ECF as soon as she is cleared by cardiology. Th plan is to continue the rest of her regimen the way it had been before. Dictated By: BRUNO BENAVIDES MD SS/NTS Conf#: [id number] DID#: [id number]
[2016-07-30] MEDS: oxyCODONE 5 MG TAB PO PRN ×2 (12:11→20:15)
--- NOTE | 2016-07-30 12:37 | CONS ---
Date/Time of Note Date/Time of Note DATE: 07/30/16 TIME: 12:32 Assessment/Plan Assessment/Plan Additional Assessment/Plan Supraventricular tachycardia Hip fracture status post repair Preserved left ventricular systolic function Aortic stenosis status post aortic valve replacement Hypertension Delirium History of dementia -After initiation of amiodarone, much less frequency of episodes of SVT and the episodes have been shorter in duration. I would adjust Cardizem dosing to twice a day dosing as well as amiodarone. If the SVT episodes remained suppressed, plan for discharge to facility within the next 24 hours Consultation Date/Type/Reason Admit Date/Time Jul 21, 2016 at 05:27 Type of Consultation: cv 24 HR Interval Summary Free Text/Dictation Patient seen and examined, still confused, somewhat bedside with slow improvement in mental status Exam/Review of Systems Vital Signs Vitals Vital Signs Date Time Temp Pulse Resp B/P Pulse Ox O2 Delivery O2 Flow Rate FiO2 07/30/16 11:36 98.3 20 184/87 93 07/30/16 08:50 79 07/28/16 20:00 Room Air Intake and Output 07/29/16 07/29/16 07/30/16 15:00 23:00 07:00 Intake Total 400 ml 300 ml Balance 400 ml 300 ml Exam Confused at times, no apparent distress Constitutional: alert, frail Head: normocephalic Neck: supple Respiratory: other (course breath sounds bilaterally, no wheezing) Cardiovascular: other (S1 and S2 heard), regular rate and rhythm Gastrointestinal: bowel sounds, non-tender, soft Extremities: edema (trace) Results Result Diagram: 07/28/1620 07/28/16 0920 Medications Medications Current Medications Oxycodone HCl (Roxicodone) 10 mg Q3H PRN PO PAIN LEVEL 4-7 Last administered on 07/30/16 12:11; Admin Dose 10 MG; Start 07/21/16 at 10:00 Zolpidem Tartrate (Ambien) 5 mg HS PRN PO INSOMNIA Last administered on 00:27; Admin Dose 5 MG; Start 07/21/16 at 10:00 Aspirin (Ecotrin) 325 mg BID PO Last administered on 07/30/16 09:12; Admin Dose 325 MG; Start 07/22/16 at 09:00 Celecoxib (Celebrex) 200 mg BID PO Last administered on 07/30/16 09:12; Admin Dose 200 MG; Start 07/22/16 at 09:00 Pantoprazole (Protonix Tab) 40 mg DAILY@06 PO Last administered on 07/30/16 05 :39; Admin Dose 40 MG; Start 07/22/16 at 06:00 Docusate Sodium/ Ferrous Fumarate (Tyree-Sequels) 1 tab BID PO Last administered on 07/30/16 09:12; Admin Dose 1 TAB; Start 07/22/16 at 09:00 Simethicone (Mylicon) 80 mg TID PRN PO DISTENSION/GAS/BLOATING; Start 07/21/16 at 10:00 Magnesium Hydroxide (Milk Of Mag) 30 ml HS PRN PO CONSTIPATION Last administered on 07/24/16 22:29; Admin Dose 30 ML; Start 07/21/16 at 10:00 Bisacodyl (Dulcolax Supp) 10 mg DAILY PRN [place] CONSTIPATION; Start 07/21/16 at 10: 00 Sodium Biphosphate/ Sodium Phosphate (Fleet Enema) 133 ml DAILY PRN AR CONSTIPATION; Start 07/21/16 at 10:00 Diphenhydramine HCl (Benadryl) 25 mg Q4H PRN IM ITCHING OR RASH Last administered on 07/21/16 14:23; Admin Dose 25 MG; Start 07/21/16 at 10:00 Naloxone HCl (Narcan) 0.2 mg Q2M PRN IV DECREASED REPIRATORY RATE; Start at 10:00 Atorvastatin Calcium (Lipitor) 20 mg DAILY PO Last administered on 07/30/16 09 :12; Admin Dose 20 MG; Start 07/22/16 at 09:00 Multivitamins/ Minerals (Theragran-M) 1 tab DAILY PO Last administered on 09:12; Admin Dose 1 TAB; Start 07/22/16 at 09:00 Dexamethasone (Decadron) 4 mg DAILY PO Last administered on 07/30/16 09:13; Admin Dose 4 MG; Start 07/23/16 at 12:00; Stop 08/02/16 at 11:59 Senna/Docusate Sodium (Senokot-S) 3 tab TID PO Last administered on 07/30/16 12:10; Admin Dose 3 TAB; Start 07/25/16 at 13:00 Diltiazem HCl (Cardizem) 60 mg Q6 PO Last administered on 07/30/16 12:12; Admin Dose 60 MG; Start 07/27/16 at 18:00 Trazodone HCl (Desyrel) 50 mg HS PO Last administered on 07/29/16 20:30; Admin Dose 50 MG; Start 07/28/16 at 21:00 Metoprolol Tartrate (Lopressor) 5 mg Q3H PRN IV HR ABOVE 120/min Last administered on 07/29/16 03:39; Admin Dose 5 MG; Start 07/29/16 at 03:30 Amiodarone HCl (Cordarone) 200 mg TID PO Last administered on 07/30/16 12:13; Admin Dose 200 MG; Start 07/29/16 at 21:00 Bipin Hayes DO Jul 30, 2016 12:37
[2016-07-30] MEDS: DILTIAZEM (CD) 120 MG CAP PO SCH (20:14)
[2016-07-30] MEDS: traZODone 50 MG TAB PO SCH (20:16)
[2016-07-31] VITALS (13 sets, daily range): BP systolic 166–191; BP diastolic 80–94; PULSE 58–70; RESP 16–21
[2016-07-31] MEDS: METOPROLOL 5 MG INJ IV PRN (01:05)
[2016-07-31] MEDS: CIPROFLOXACIN 500 MG TAB PO SCH ×2 (06:31→19:01)
[2016-07-31] MEDS: PANTOPRAZOLE (EC) 40 MG TAB PO SCH (06:31)
[2016-07-31] MEDS: CELECOXIB 200 MG CAP PO SCH ×2 (09:19→21:04)
[2016-07-31] MEDS: DILTIAZEM (CD) 120 MG CAP PO SCH ×2 (09:19→21:05)
[2016-07-31] MEDS: AMIODARONE 200 MG TAB PO SCH ×2 (09:21→21:05)
[2016-07-31] MEDS: ASPIRIN (EC) 325 MG TAB PO SCH ×2 (09:21→21:05)
[2016-07-31] MEDS: DEXAMETHASONE 4 MG TAB PO SCH (09:21)
[2016-07-31] MEDS: ATORVASTATIN 20 MG TAB PO SCH (09:22)
[2016-07-31] MEDS: FERROUS FUMARATE (SR) TAB PO SCH ×2 (09:22→21:05)
[2016-07-31] MEDS: SENNA/DOCUSATE NA (8.6MG/50MG) TAB PO SCH ×3 (09:23→21:04)
[2016-07-31] MEDS: MULTIVITAMINS/MINERALS TAB PO SCH (09:23)
--- NOTE | 2016-07-31 16:14 | CONS ---
Date/Time of Note Date/Time of Note DATE: 07/31/16 TIME: 16:13 Assessment/Plan Assessment/Plan Chief Complaint/Hosp Course Supraventricular tachycardia Hip fracture status post repair Preserved left ventricular systolic function Aortic stenosis status post aortic valve replacement Hypertension Delirium History of dementia Problems: Additional Assessment/Plan No further episodes on current meds continue current meds reduce amiodarone in few days to once a day ok to dc from cards dw relative Consultation Date/Type/Reason Admit Date/Time Jul 21, 2016 at 05:27 Initial Consult Date Type of Consultation: cv 24 HR Interval Summary Free Text/Dictation no distress, no palpitations, no syncope or near syncope Detailed Summary Respiratory: no complaints Cardiovascular: no complaints Gastrointestinal: no complaints Musculoskeletal: no complaints Skin: no complaints Neurologic: no complaints Exam/Review of Systems Vital Signs Vitals Vital Signs Date Time Temp Pulse Resp B/P Pulse Ox O2 Delivery O2 Flow Rate FiO2 07/31/16 13:22 97.7 87 21 166/80 95 07/28/16 20:00 Room Air Intake and Output 07/30/16 07/30/16 07/31/16 15:00 23:00 07:00 Intake Total 480 ml 400 ml Balance 480 ml 400 ml Exam Constitutional: frail Psych: confusion Head: atraumatic, normocephalic Neck: supple Respiratory: clear to auscultation Cardiovascular: regular rate and rhythm Gastrointestinal: soft Results Result Diagram: 07/28/1620 07/28/16 0920 Medications Medications Current Medications Oxycodone HCl (Roxicodone) 10 mg Q3H PRN PO PAIN LEVEL 4-7 Last administered on 07/30/16 20:15; Admin Dose 10 MG; Start 07/21/16 at 10:00 Zolpidem Tartrate (Ambien) 5 mg HS PRN PO INSOMNIA Last administered on 00:27; Admin Dose 5 MG; Start 07/21/16 at 10:00 Aspirin (Ecotrin) 325 mg BID PO Last administered on 07/31/16 09:21; Admin Dose 325 MG; Start 07/22/16 at 09:00 Celecoxib (Celebrex) 200 mg BID PO Last administered on 07/31/16 09:19; Admin Dose 200 MG; Start 07/22/16 at 09:00 Pantoprazole (Protonix Tab) 40 mg DAILY@06 PO Last administered on 07/31/16 06 :31; Admin Dose 40 MG; Start 07/22/16 at 06:00 Docusate Sodium/ Ferrous Fumarate (Tyree-Sequels) 1 tab BID PO Last administered on 07/31/16 09:22; Admin Dose 1 TAB; Start 07/22/16 at 09:00 Simethicone (Mylicon) 80 mg TID PRN PO DISTENSION/GAS/BLOATING; Start 07/21/16 at 10:00 Magnesium Hydroxide (Milk Of Mag) 30 ml HS PRN PO CONSTIPATION Last administered on 07/24/16 22:29; Admin Dose 30 ML; Start 07/21/16 at 10:00 Bisacodyl (Dulcolax Supp) 10 mg DAILY PRN [place] CONSTIPATION; Start 07/21/16 at 10: 00 Sodium Biphosphate/ Sodium Phosphate (Fleet Enema) 133 ml DAILY PRN RI CONSTIPATION; Start 07/21/16 at 10:00 Diphenhydramine HCl (Benadryl) 25 mg Q4H PRN IM ITCHING OR RASH Last administered on 07/21/16 14:23; Admin Dose 25 MG; Start 07/21/16 at 10:00 Naloxone HCl (Narcan) 0.2 mg Q2M PRN IV DECREASED REPIRATORY RATE; Start at 10:00 Atorvastatin Calcium (Lipitor) 20 mg DAILY PO Last administered on 07/31/16 09 :22; Admin Dose 20 MG; Start 07/22/16 at 09:00 Multivitamins/ Minerals (Theragran-M) 1 tab DAILY PO Last administered on 09:23; Admin Dose 1 TAB; Start 07/22/16 at 09:00 Dexamethasone (Decadron) 4 mg DAILY PO Last administered on 07/31/16 09:21; Admin Dose 4 MG; Start 07/23/16 at 12:00; Stop 08/02/16 at 11:59 Senna/Docusate Sodium (Senokot-S) 3 tab TID PO Last administered on 07/31/16 15:28; Admin Dose 3 TAB; Start 07/25/16 at 13:00 Trazodone HCl (Desyrel) 50 mg HS PO Last administered on 07/30/16 20:16; Admin Dose 50 MG; Start 07/28/16 at 21:00 Metoprolol Tartrate (Lopressor) 5 mg Q3H PRN IV HR ABOVE 120/min Last administered on 07/31/16 01:05; Admin Dose 5 MG; Start 07/29/16 at 03:30 Amiodarone HCl (Cordarone) 200 mg BID PO Last administered on 07/31/16 09:21; Admin Dose 200 MG; Start 07/31/16 at 09:00 Diltiazem HCl (Cardizem Cd) 120 mg BID PO Last administered on 07/31/16 09:19 ; Admin Dose 120 MG; Start 07/30/16 at 21:00 Ciprofloxacin (Cipro) 500 mg BID@,18 PO Last administered on 07/31/16 06:31 ; Admin Dose 500 MG; Start 07/31/16 at 06:00 BORIS CASTILLO MD Jul 31, 2016 16:14
--- NOTE | 2016-07-31 17:31 | PN ---
Date/Time of Note Date/Time of Note DATE: 07/31/16 TIME: 17:26 Assessment/Plan VTE Prophylaxis VTE Prophylaxis Intervention: other VTE Contraindication Reason: sx procedure on lower extremity Lines/Catheters IV [facility] Saline Lock Urinary Cath still in place: No Assessment/Plan Problems: (1) UTI (urinary tract infection) Status: Acute Comment: Pathogen sensitive to ciprofloxacin. (2) Delirium Status: Acute Comment: Delirium may be result of infection. Patient started on antibiotic for UTI. Will monitor to see if mental status improves further. (3) Essential (primary) hypertension Status: Chronic Comment: Fair control. (4) Osteoporotic fracture of right hip Status: Acute Comment: Status post fracture with right hip replacement Qualifiers: Encounter type: subsequent encounter (5) History of right hip hemiarthroplasty Status: Chronic Comment: Status post fracture with right hip replacement. Assessment/Plan Will plan for transfer to [facility] tomorrow. Subjective 24 Hr Interval Summary Free Text/Dictation Per daughter more oriented today. Exam/Review of Systems Vital Signs Vitals Vital Signs Date Time Temp Pulse Resp B/P Pulse Ox O2 Delivery O2 Flow Rate FiO2 07/31/16 17:22 69 07/31/16 16:34 98.5 20 185/88 95 07/28/16 20:00 Room Air Intake and Output 07/30/16 07/30/16 07/31/16 15:00 23:00 07:00 Intake Total 480 ml 400 ml Balance 480 ml 400 ml Exam Constitutional: alert, well developed Head: normocephalic Eyes: EOMI, PERRL, nl conjunctiva Neck: non-tender, supple Respiratory: clear to auscultation, normal air movement Cardiovascular: nl pulses, regular rate and rhythm Gastrointestinal: soft Musculoskeletal: nl extremities to inspection Extremities: normal pulses Results Result Diagram: 07/28/1620 07/28/1620 Medications Medications Current Medications Oxycodone HCl (Roxicodone) 10 mg Q3H PRN PO PAIN LEVEL 4-7 Last administered on 07/30/16 20:15; Admin Dose 10 MG; Start 07/21/16 at 10:00 Zolpidem Tartrate (Ambien) 5 mg HS PRN PO INSOMNIA Last administered on 00:27; Admin Dose 5 MG; Start 07/21/16 at 10:00 Aspirin (Ecotrin) 325 mg BID PO Last administered on 07/31/16 09:21; Admin Dose 325 MG; Start 07/22/16 at 09:00 Celecoxib (Celebrex) 200 mg BID PO Last administered on 07/31/16 09:19; Admin Dose 200 MG; Start 07/22/16 at 09:00 Pantoprazole (Protonix Tab) 40 mg DAILY@06 PO Last administered on 07/31/16 06 :31; Admin Dose 40 MG; Start 07/22/16 at 06:00 Docusate Sodium/ Ferrous Fumarate (Tyree-Sequels) 1 tab BID PO Last administered on 07/31/16 09:22; Admin Dose 1 TAB; Start 07/22/16 at 09:00 Simethicone (Mylicon) 80 mg TID PRN PO DISTENSION/GAS/BLOATING; Start 07/21/16 at 10:00 Magnesium Hydroxide (Milk Of Mag) 30 ml HS PRN PO CONSTIPATION Last administered on 07/24/16 22:29; Admin Dose 30 ML; Start 07/21/16 at 10:00 Bisacodyl (Dulcolax Supp) 10 mg DAILY PRN IN CONSTIPATION; Start 07/21/16 at 10: 00 Sodium Biphosphate/ Sodium Phosphate (Fleet Enema) 133 ml DAILY PRN IN CONSTIPATION; Start 07/21/16 at 10:00 Diphenhydramine HCl (Benadryl) 25 mg Q4H PRN IM ITCHING OR RASH Last administered on 07/21/16 14:23; Admin Dose 25 MG; Start 07/21/16 at 10:00 Naloxone HCl (Narcan) 0.2 mg Q2M PRN IV DECREASED REPIRATORY RATE; Start at 10:00 Atorvastatin Calcium (Lipitor) 20 mg DAILY PO Last administered on 07/31/16 09 :22; Admin Dose 20 MG; Start 07/22/16 at 09:00 Multivitamins/ Minerals (Theragran-M) 1 tab DAILY PO Last administered on 09:23; Admin Dose 1 TAB; Start 07/22/16 at 09:00 Dexamethasone (Decadron) 4 mg DAILY PO Last administered on 07/31/16 09:21; Admin Dose 4 MG; Start 07/23/16 at 12:00; Stop 08/02/16 at 11:59 Senna/Docusate Sodium (Senokot-S) 3 tab TID PO Last administered on 07/31/16 15:28; Admin Dose 3 TAB; Start 07/25/16 at 13:00 Trazodone HCl (Desyrel) 50 mg HS PO Last administered on 07/30/16 20:16; Admin Dose 50 MG; Start 07/28/16 at 21:00 Metoprolol Tartrate (Lopressor) 5 mg Q3H PRN IV HR ABOVE 120/min Last administered on 07/31/16 01:05; Admin Dose 5 MG; Start 07/29/16 at 03:30 Amiodarone HCl (Cordarone) 200 mg BID PO Last administered on 07/31/16 09:21; Admin Dose 200 MG; Start 07/31/16 at 09:00 Diltiazem HCl (Cardizem Cd) 120 mg BID PO Last administered on 07/31/16 09:19 ; Admin Dose 120 MG; Start 07/30/16 at 21:00 Ciprofloxacin (Cipro) 500 mg BID@06,18 PO Last administered on 07/31/16 06:31 ; Admin Dose 500 MG; Start 07/31/16 at 06:00 MARIA DE JESUS MOMIN MD Jul 31, 2016 17:31
[2016-07-31] MEDS: traZODone 50 MG TAB PO SCH (21:05)
[2016-08-01] VITALS (9 sets, daily range): BP systolic 133–190; BP diastolic 67–86; PULSE 55–125; RESP 20
[2016-08-01] MEDS: ZOLPIDEM 5 MG TAB PO PRN (01:37)
[2016-08-01] MEDS: oxyCODONE 5 MG TAB PO PRN (03:09)
[2016-08-01] MEDS: METOPROLOL 5 MG INJ IV PRN (06:23)
[2016-08-01] MEDS: PANTOPRAZOLE (EC) 40 MG TAB PO SCH (06:24)
[2016-08-01] MEDS: CIPROFLOXACIN 500 MG TAB PO SCH (06:24)
[2016-08-01] MEDS: DEXAMETHASONE 4 MG TAB PO SCH (08:42)
[2016-08-01] MEDS: DILTIAZEM (CD) 120 MG CAP PO SCH (08:42)
[2016-08-01] MEDS: FERROUS FUMARATE (SR) TAB PO SCH (08:43)
[2016-08-01] MEDS: ATORVASTATIN 20 MG TAB PO SCH (08:43)
[2016-08-01] MEDS: CELECOXIB 200 MG CAP PO SCH (08:43)
[2016-08-01] MEDS: ASPIRIN (EC) 325 MG TAB PO SCH (08:43)
[2016-08-01] MEDS: AMIODARONE 200 MG TAB PO SCH (08:44)
[2016-08-01] MEDS: MULTIVITAMINS/MINERALS TAB PO SCH (08:45)
[2016-08-01] MEDS: SENNA/DOCUSATE NA (8.6MG/50MG) TAB PO SCH ×2 (08:45→13:00)
[2016-08-01] MEDS ORDERED: ACETAMINOPHEN 500 MG TAB PO PRN (11:00)
[2016-08-01] MEDS ORDERED: HYDROCODONE/APAP (5/325) TAB PO ONE (11:00)
[2016-08-01] MEDS ORDERED: URE25 PO (11:05)
[2016-08-01] MEDS ORDERED: MYL80 PO (11:05)
[2016-08-01] MEDS ORDERED: PANT40TA4 PO (11:05)
[2016-08-01] MEDS ORDERED: TRAZ50TA18 PO (11:05)
[2016-08-01] MEDS ORDERED: DULR PR (11:05)
--- NOTE | 2016-08-01 11:15 | CONS ---
Date/Time of Note Date/Time of Note DATE: 08/01/16 TIME: 11:07 Assessment/Plan Assessment/Plan Problems: (1) Delirium Status: Acute Comment: will discontinue oxycodone. Change to tylenol for pain considering patient does not complain of pain. (2) UTI (urinary tract infection) Status: Acute Comment: Continue ciprofloxacin to complete 7 days of antibiotic therapy. (3) Tachycardia Status: Acute Comment: Occurring now only when agitated. Cleared by cardiology for transfer. (4) Essential (primary) hypertension Status: Chronic Comment: Fair. Blood pressure rises when patient agitated. (5) Osteoporotic fracture of right hip Status: Resolved Comment: status post right total hip replacement Qualifiers: Encounter type: subsequent encounter (6) History of right hip hemiarthroplasty Status: Resolved Additional Assessment/Plan Plan for transfer to [facility] today. Will reassess at noon. If less agitated will transfer. Consultation Date/Type/Reason Admit Date/Time Jul 21, 2016 at 05:27 Initial Consult Date Type of Consultation: cv 24 HR Interval Summary Free Text/Dictation Patient confused and agitated. Per son-in-law, this occurs whenever she receives narcotics. Patient received oxycodone last night. Also contin ues on decadron for unexplained reason. Exam/Review of Systems Vital Signs Vitals Vital Signs Date Time Temp Pulse Resp B/P Pulse Ox O2 Delivery O2 Flow Rate FiO2 08/01/16 08:44 55 08/01/16 07:44 97.4 20 151/78 93 07/28/16 20:00 Room Air Intake and Output 07/31/16 07/31/16 08/01/16 15:00 23:00 07:00 Intake Total 520 ml 400 ml Balance 520 ml 400 ml Exam Constitutional: alert Psych: confusion Eyes: EOMI, PERRL, nl conjunctiva Neck: supple Respiratory: clear to auscultation Gastrointestinal: soft Musculoskeletal: nl extremities to inspection Extremities: normal pulses Results Result Diagram: 07/28/1691907/28/16919 Medications Medications Current Medications Oxycodone HCl (Roxicodone) 10 mg Q3H PRN PO PAIN LEVEL 4-7 Last administered on 08/01/16t 03:09; Admin Dose 10 MG; Start 07/21/16 at 10:00 Zolpidem Tartrate (Ambien) 5 mg HS PRN PO INSOMNIA Last administered on 01:37; Admin Dose 5 MG; Start 07/21/16 at 10:00 Aspirin (Ecotrin) 325 mg BID PO Last administered on 08/01/16 08:43; Admin Dose 325 MG; Start 07/22/16 at 09:00 Celecoxib (Celebrex) 200 mg BID PO Last administered on 08/01/16 08:43; Admin Dose 200 MG; Start 07/22/16 at 09:00 Pantoprazole (Protonix Tab) 40 mg DAILY@06 PO Last administered on 08/01/16 06 :24; Admin Dose 40 MG; Start 07/22/16 at 06:00 Docusate Sodium/ Ferrous Fumarate (Tyree-Sequels) 1 tab BID PO Last administered on 08/01/16 08:43; Admin Dose 1 TAB; Start 07/22/16 at 09:00 Simethicone (Mylicon) 80 mg TID PRN PO DISTENSION/GAS/BLOATING; Start 07/21/16 at 10:00 Magnesium Hydroxide (Milk Of Mag) 30 ml HS PRN PO CONSTIPATION Last administered on 07/24/16 22:29; Admin Dose 30 ML; Start 07/21/16 at 10:00 Bisacodyl (Dulcolax Supp) [address] CONSTIPATION; Start 07/21/16 at 10: 00 Sodium Biphosphate/ Sodium Phosphate (Fleet Enema) [address] CONSTIPATION; Start 07/21/16 at 10:00 Diphenhydramine HCl (Benadryl) 25 mg Q4H PRN IM ITCHING OR RASH Last administered on 07/21/16 14:23; Admin Dose 25 MG; Start 07/21/16 at 10:00 Naloxone HCl (Narcan) 0.2 mg Q2M PRN IV DECREASED REPIRATORY RATE; Start at 10:00 Atorvastatin Calcium (Lipitor) 20 mg DAILY PO Last administered on 08/01/16 08 :43; Admin Dose 20 MG; Start 07/22/16 at 09:00 Multivitamins/ Minerals (Theragran-M) 1 tab DAILY PO Last administered on 08:45; Admin Dose 1 TAB; Start 07/22/16 at 09:00 Dexamethasone (Decadron) 4 mg DAILY PO Last administered on 08/01/16 08:42; Admin Dose 4 MG; Start 07/23/16 at 12:00; Stop 08/02/16 at 11:59 Senna/Docusate Sodium (Senokot-S) 3 tab TID PO Last administered on 08/01/16 08:45; Admin Dose 1 TAB; Start 07/25/16 at 13:00 Trazodone HCl (Desyrel) 50 mg HS PO Last administered on 07/31/16 21:05; Admin Dose 50 MG; Start 07/28/16 at 21:00 Metoprolol Tartrate (Lopressor) 5 mg Q3H PRN IV HR ABOVE 120/min Last administered on 08/01/16 06:23; Admin Dose 5 MG; Start 07/29/16 at 03:30 Amiodarone HCl (Cordarone) 200 mg BID PO Last administered on 08/01/16 08:44; Admin Dose 200 MG; Start 07/31/16 at 09:00 Diltiazem HCl (Cardizem Cd) 120 mg BID PO Last administered on 08/01/16 08:42 ; Admin Dose 120 MG; Start 07/30/16 at 21:00 Ciprofloxacin (Cipro) 500 mg BID@18 PO Last administered on 08/01/16 06:24 ; Admin Dose 500 MG; Start 07/31/16 at 06:00 MARIA DE JESUS MOMIN MD Aug 01, 2016 11:15
[2016-08-01] MEDS ORDERED: CELE-54 PO (11:24)
[2016-08-01] MEDS ORDERED: AMIO200T2 PO (11:24)
[2016-08-01] MEDS ORDERED: DILT120C77 PO (11:24)
[2016-08-01] MEDS ORDERED: CIPR500T4 PO (11:24)
[2016-08-01] MEDS ORDERED: FERR1TAB14 PO (11:24)
[2016-08-01] MEDS ORDERED: UDMOM PO (11:24)
[2016-08-01] MEDS ORDERED: ZOLP5TAB PO (11:24)
[2016-08-01] MEDS ORDERED: DIPH50VI2 IM (11:24)
[2016-08-01] MEDS ORDERED: ASPI325T32 PO (11:24)
[2016-08-01] MEDS ORDERED: ATOR20TA65 PO (11:24)
[2016-08-01] MEDS ORDERED: MULT-843 PO (11:25)
== END 2016-08-01 15:01 | DRG 470 ==
LOC: REC 05:27 → ICU 07-22 00:50 → MS1 07-23 12:23 → TEL 07-25 17:00
PROC: 0SRR019 Replacement of Right Hip Joint, Femoral Surface with Metal Synthetic Substitute, Cemented, Open Approach (ICD-10-PCS; principal; 2016-07-21 07:00)
DX: M80.051A Age-related osteoporosis with current pathological fracture, right femur, initial encounter for fracture (principal); F03.90 Unspecified dementia, unspecified severity, without behavioral disturbance, psychotic disturbance, mood disturbance, and anxiety; F05 Delirium due to known physiological condition; N39.0 Urinary tract infection, site not specified; I47.1 Supraventricular tachycardia; K59.00 Constipation, unspecified; I10 Essential (primary) hypertension; E78.5 Hyperlipidemia, unspecified; Z95.2 Presence of prosthetic heart valve
CPT/HCPCS: 36430; 73500; 80048; 80053; 83735; 84443; 85025; 86850; 86900; 86901; 86920; 87081; 87086; 88304; 88311; 93005; 93306; 97003; 97110; 97116; 97162; 97167; 97530; J0131; J0153; J0171; J0690; J0735; J1100; J1200; J1885; J2274; J2405; J2710; J2795; J3010; J3370; J3475; J7040; J7120; J7121; P9016

== ENCOUNTER → 2016-08-11 | Outpatient (CLI) | payer MEDICARE, BC ==
[~2016-08-11] MED LIST changes: +AMIO200T2 PO; -ASPI-650 PO; +ASPI325T32 PO; -ATOR20TA17 PO; +ATOR20TA65 PO; +CELE-54 PO; +CIPR500T4 PO; -CO Q-10; +DILT120C77 PO; +DIPH50VI2 IM; +DULR PR; +FERR1TAB14 PO; -IBAN150T4 PO; -LISI10TA2 PO; -METO-103 PO; +MULT-843 PO; -MULT1TAB6 PO; +MYL80 PO; +PANT40TA4 PO; +TRAZ50TA18 PO; +UDMOM PO; +URE25 PO; -VITAMIN D3; +ZOLP5TAB PO
--- NOTE | 2016-08-11 17:24 | HKNOTE ---
DATE OF SERVICE: 08/11/2016 HISTORY OF PRESENT ILLNESS: An 89-year-old female presents today for a 3 week postoperative visit for right hip hemiarthroplasty. Prior to surgery, patient was unable to weightbear even with assistance. The patient's daughter, patient and patient's caregiver at [facility] state that she is able to walk around 80 to 90 feet with help. The patient is very happy as she could not perform any weightbearing before. In regards to pain, patient is doing well and states that pain is well controlled. No falls since she was last seen. VITAL SIGNS: Blood pressure is 124/58, temperature 97.8 degrees, pulse 42, respiratory rate 12, height 5 feet, weight 87 pounds. PHYSICAL EXAMINATION: The patient is able to weightbear today with assistance of daughter and half-way facility medical billing associate. Macario are still in place. No signs of infection. Wound site is clean, dry and intact. No tenderness to palpation today. Normal sensory examination to the right lower extremity. Significant weakness to the hip flexors, abductors, adductors and extensors. ASSESSMENT AND PLAN: Paperwork filled out today for [facility]. Included in the orders, it was instructed that [facility] remove macario per Dr. Wilson's instructions. The patient may remain at [facility] for assisted care and monitoring, but Dr. Wilson has communicated to patient's daughter/caregiver that alternative plans for patient to return home should start as there is time limit that patient can be in half-way facility and daughter states understanding. Continue aspirin DVT prophylaxis. Followup in three weeks with expected x-rays on followup as that will be patient 's 6 week postoperative visit. Continue with pain medications as needed. Continue with hip precautions for an additional 3 weeks. Dictated By: ANDREW MCKEON for PETER WILSON MD, KP/SHARON Conf#: [id number] DID#: [id number] MTDD
== END | disposition home or self-care (01) ==
LOC: HKI 14:09
DX: Z47.89 Encounter for other orthopedic aftercare (principal); Z79.82 Long term (current) use of aspirin
CPT/HCPCS: G0463

== ENCOUNTER → 2016-09-01 | Outpatient (CLI) | payer MEDICARE, BC ==
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
== END | disposition home or self-care (01) ==
LOC: HKI 13:39
DX: Z47.89 Encounter for other orthopedic aftercare (principal)